=== PATIENT | male | born 1945 | race Caucasian/White ===

== ENCOUNTER 2020-01-25 10:10 | Observation (INO) | payer MEDICARE, OTHER, SELFPAY ==
--- NOTE | 2020-01-21 10:14 | ECG_ITS ---
Measurements Intervals [place] Rate: 44 P: TN: 0 QRS: 225 QRSD: 134 T: 161 QT: 432 QTc: 370 SINUS RHYTHM WITH MOBITZ TYPE 1 BLOCK 2:1 AV BLOCK NOTED MARKED RIGHT AXIS DEVIATION [QRS AXIS > 100] RIGHT BUNDLE BRANCH BLOCK [120+ ms QRS DURATION, UPRIGHT V1, 40+ ms S IN I/aVL/V4/V5/V6] Compared to ECG 05/02/2019 10:32:25 Right-axis deviation now present Sinus bradycardia no longer present Left-axis deviation no longer present Electronically Signed On 01-22-2020 16:42:52 CDT by Angy Giron M.D. [email or web address]
[2020-01-21 10:26] VITALS: BMI 32.2
--- NOTE | 2020-01-21 10:42 | ANES.PREANE2 ---
Pre-Anesthetic Assessment Pre-Anesthetic Assessment: Height/Weight: Height 1.73 m Weight 96.162 kg Preop Diagnosis: Mobitz type II AV block Proposed Procedure: Operation Date: 01/25/20 07:00 Proposed Procedures p Pacemaker Insertion(Not Applicable) - Dave Cobian MD Familial anesthetic complications: None Social: Social History: No alcohol and No tobacco Exam: Pre-Anes Outpt Exam: alert, oriented x 3, clear to auscultation bilaterally and regular rate & rhythm Airway: Cervical ROM: WNL MP: 4 Additional comments: missing Pulmonary: Pulmonary: COPD CV/HEM: CV/HEM: Arrythmia and HTN : : None reported Hepatic: Hepatic: None reported GI: GI: GERD Metabolic: Metabolic: None reported Comments: Pre-DM Musc/skel: Musc/skel: None reported Neuropsych: Neuropsych: None reported Anesthetic Plan: ASA status: 3 Anesthesia: MAC Risk of > 500 ml blood loss (7ml/kg in children): No PFSH Anesthesia PFSH: Social History Smoking and tobacco status: former smoker Alcohol intake: former Data Anesthesia Cardiac Studies: No Data to Display
[2020-01-21 10:49] LABS: Basophils # 0.1 10^3/uL (0.0-0.1); Basophils % 0.7 %; Eosinophils # 0.4 10^3/uL (0.0-0.8); Eosinophils % 5.7 %; Hematocrit 43.4 % (42.0-52.0); Hemoglobin 14.8 g/dL (11.7-16.6); Lymphocytes # 2.2 10^3/uL (0.8-4.8); Lymphocytes % 32.8 %; Mean Corpuscular HGB Conc 34.1 g/dL (30.0-36.0); Mean Corpuscular Hemoglobin 30.6 pg (28.0-34.0); Mean Corpuscular Volume 89.9 fL (80-94); Mean Platelet Volume 10.5 fL (7.4-10.4); Monocytes # 0.5 10^3/uL (0.2-0.9); Monocytes % 7.8 %; Neutrophils # 3.6 10^3/uL (1.8-7.7); Neutrophils % 52.7 %; Nucleated Red Blood Cells % 0 %; Platelet Count 211 10^3/cmm (130-400); Red Blood Count 4.83 10^6/uL (4.1-5.3); Red Cell Distribution Width 12.6 % (12.1-15.1); White Blood Count 6.8 10^3/uL (4.0-10.0)
[2020-01-21 10:58] LABS: INR 0.95 (0.8-1.2)
[2020-01-21 11:03] LABS: Add Urine Microscopic? NO
[2020-01-21 11:07] LABS: Anion Gap 15.2 (5-19); Blood Urea Nitrogen 25 mg/dL (8-23); Calcium 9.6 mg/dL (8.5-10.5); Carbon Dioxide 25 mmol/L (22-29); Chloride 104 mmol/L (98-107); Glucose 174 mg/dL (65-115); Osmolality Calculated 291 mOsm/kg (285-295); Potassium 4.2 mmol/L (3.5-5.1); Sodium 140 mmol/L (136-145)
[2020-01-22 05:02] LABS: Specific Gravity, Urine 1.015 (1.005-1.030); Urine Appearance Clear (CLEAR); Urine Color Yellow (Yellow); pH Urine 5 (5-7)
[2020-01-22 05:03] LABS: Bilirubin Urine Neg (NEGATIVE); Blood Urine Neg (Negative); Glucose Urine UA Norm (Normal); Ketones Urine Negative (Negative); Leukocyte Esterase Urine Negative (Negative); Nitrate Urine Negative (Negative); Protein Urine Neg (Negative); Urobilinogen Urine Norm (Negative)
[2020-01-25] VITALS (16 sets, daily range): BP systolic 76–166; BP diastolic 46–101; PULSE 45–93; RESP 14–21; TEMP 36.3–37.1; O2SAT 94–98
--- NOTE | 2020-01-25 | SCC_ITS ---
Procedure Done: Dual-chamber pacemaker implantation 470.2 seconds of fluoroscopic guidance, for a cumulative dose of 125.54 mGy, was provided to Dr. Cobian by the radiology department. C-arm images of the chest were saved for the patient's permanent record. [facility]
--- NOTE | 2020-01-25 05:59 | XR_ITS ---
WS: [id number] XR chest 1V portable [id number] REASON FOR EXAM: Preop pacemaker implantation FINDINGS: Cardiomegaly with arteriosclerotic changes. The trachea is deviated to the right of midline The superior thyroid appears to be slightly prominent a thyroid substernal cannot be excluded. XR/XR chest 1V portable [id number] IMPRESSION: Cardiomegaly with arteriosclerotic changes Suspect substernal thyroid.
--- NOTE | 2020-01-25 06:17 | P.ANESUD_ITS ---
Pre-Anesthetic Update Pre-Anesthetic Assessment: Date of Surgery/Procedure: 01/25/20 Preop Tuyet gnosis: Mobitz type II AV block Proposed Procedure: Operation Date: 01/25/20 07:00 Proposed Procedures p Pacemaker Insertion(Not Applicable) - Dave Cobian MD Any changes to Pre-Anesthetic Assessment?: No Last Intake: Intake Last Liquid Date 01/24/20 Last Liquid Time 20:00 Last Solid Date 01/24/20 Last Solid Time 20:00 Vitals: Temperature 98.7 F 01/25/20 06:02 Temperature Source Temporal Artery S can 01/25/20 06:02 Pulse Rate 45 L 01/25/20 06:02 Respiratory Rate 18 01/25/20 06:02 Blood Pressure 161/77 01/25/20 06:02 Blood Pressure Jamilah n 105 01/25/20 06:02 Pulse Oximetry 97 01/25/20 06:02 Oxygen Delivery Me thod 01/25/20 06:02 Exam: Pre-Anes Outpt Exam: alert, oriented x 3, clear to auscultation bilaterally and regular rate & rhythm Cardiac Studies: No Data to Display
--- NOTE | 2020-01-25 06:28 | W.PM.OPSUD ---
Surgery/Procedure H&P Update DATE OF PROCEDURE: January 25, 2020 DATE H&P PERFORMED: 02/20/20 H&P UPDATE INFORMATION: I have reviewed H&P completed within last 30 days, I have examined patient prior to procedure and Changes to prior documentation as noted here CHANGES TO PREVIOUS DOCUMENTATION: I have reviewed the single view portable chest x-ray for this morning. Moderate cardiomegaly though otherwise clear lung haile without effusions or infiltrates. PREOP DIAGNOSIS: Mobitz type II AV block PRIMARY INDICATION FOR PROCEDURE: Mobitz type II AV heart block with symptomatic and refractory bradycardia PLANNED PROCEDURE: Operation Date: 01/25/20 07:00 Proposed Procedures p Pacemaker Insertion(Not Applicable) - Dave Cobian MD
[2020-01-25] MEDS: sodium chloride 0.9% 1,000 ML 30 ML IV (06:33)
--- NOTE | 2020-01-25 06:48 | SC_ITS ---
NOTE: Report was unsigned for reason: Order was edited. Original Signature date and time was: 01/25/20625 WS: [id number] C-arm FL for CVA [id number] REASON FOR EXAM: pacemaker insertion FINDINGS: Imaging was performed for C-arm insertion the final exam electrodes appear to be in good position. [facility] SC/C-arm FL for CVA [id number] IMPRESSION: Imaging for performance insertion of a pacemaker satisfactory position wiring.
[2020-01-25] MEDS: ceFAZolin 1,000 mg SDV 1000 MG IRRIGATION (07:19)
[2020-01-25] MEDS: lidocaine 1% INJ 20 mL SUBCUT ×2 (07:19→09:05)
--- NOTE | 2020-01-25 07:34 | SUR.OPER ---
0734 - Pt's Sabi updated on surgery progress and pt stats via her cell phone.
--- NOTE | 2020-01-25 09:14 | SUR.OPER ---
1568 - Pt's updated on surgery progress and pt status via he cell phone
--- NOTE | 2020-01-25 09:45 | PM.OP ---
Operative Report Date of procedure: January 25, 2020 Pre-op Diagnosis: Mobitz type II AV block Post-op diagnosis: same Procedure Done: Dual-chamber pacemaker implantation Implants: Pacemaker generator and leads Pathology: none sent Surgeon: Dave Cobian Anesthesia: MAC and Local (12 cc 1% lidocaine infiltrated locally) Estimated blood loss (mL): 30 Complications: None: Post procedure chest x-ray pending Findings: Due to difficulty engaging the small left subclavian vein as imaged by handheld ultrasound, we elected to place the device in the right subclavicular region. Condition: stable Disposition: PACU Brief History: Mr. Fulton is a 75-year-old gentleman with progressive, highly symptomatic bradycardia with documented Mobitz type II AV block. Cardiology is recommended a dual chamber pacemaker implantation. Details of risk the procedure were carefully and frankly discussed. Appropriate consents were reviewed and signed. Procedure: Procedure: Mr. Fulton was taken to the OR suite and placed in the supine position over a shoulder roll. He received conscious sedation with continuous anesthesia monitoring by. His entire chest was sterilely prepped and draped. 1% lidocaine was initially infiltrated in the left subclavicular region. While in Trendelenburg position, multiple attempts were made to engage the left subclavian vein without success. Hand-held imaging ultrasound revealed that this vein was quite small, rather collapsed, and deep. We separately proceeded over to the right side were again once lidocaine was infiltrated and then utilizing modified Seldinger technique 2 guidewires were placed in the right subclavian vein. This was confirmed in position by fluoroscopy. Next, after infiltration with lidocaine, a subcutaneous pocket was created beginning from the exit point of the guidewire and extending laterally and inferiorly. Cautery was utilized to create the pocket just above the pectoralis musculature. Hemostasis was confirmed. An antibiotic-soaked sponge was placed in the wound. A dilator and tear-away sheath was placed over the first guidewire and advanced under fluoroscopy. Guidewire and dilator were removed. Next using a combination of curved and straight stylettes, the right ventricular lead was placed in position by fluoroscopy. The distal screw was extended. Interrogation was then performed confirming appropriate parameters. The tear-away sheath was then removed and the ventricular lead was sewn to the floor of the subcutaneous pocket. In a similar fashion dilator and tear-away sheath was placed over the 2nd guide wire and advanced under fluoroscopy. Guidewire and dilator were removed. Straight and curved stylettes were used to position the right atrial lead with fluoroscopy. Distal screw was extended. Interrogation was then performed. Tear-away sheath was then removed. Atrial lead was secured to the floor of the subcutaneous pocket. Pocket was irrigated with antibiotic solution and hemostasis again confirmed. Pacing generator was brought into the field, and after confirmation of hemostasis in the subcutaneous pocket, the leads were connected to the generator with appropriate capture. The entire system was interrogated by fluoroscopy. Leads and generator were secured in the pocket. Sponge and needle count was correct. The wound was then closed in 2 layers of 3-0 Vicryl suture. Skin was reapproximated in a subcuticular manner with 4-0 Monocryl suture. A pressure dressing was applied. The right arm was placed in a sling. Mr. Fulton had equal breath sounds bilaterally. He was then transferred to the PACU, where chest x-ray was performed and reviewed. No pneumothorax was noted and mediastinum was unchanged from preop chest x-ray. I did automobile travel club counselor with his , Sabi, by phone at the completion of the procedure. Following are the specifics of this system: Right ventricular lead is 52 cm and model 5076. Serial number [id number] Right atrial lead is 45 cm and is model 5076. Serial number [id number]. Ventricular lead had sensing of 6.3 mV with an impedance of 760 ohms. Threshold was 0.75 V Atrial lead had sensing of 1.9 mV with an impedance of 551 ohms. Threshold was 0.75 V. Generator: [employer] model # W1DR01 Serial #[id number]
--- NOTE | 2020-01-25 09:48 | XR_ITS ---
WS: [id number] XR chest 1V portable [id number] REASON FOR EXAM: POST OP FINDINGS: Since earlier exam exposed 01/25/2020 a pacemaker is now seen extending from the right side e lectrodes appear to be in good position. The heart is similar in size with arteriosclerotic changes. There is no pneumothorax seen. XR/XR chest 1V portable [id number] IMPRESSION: Pacemaker seen extends from the right side with electrodes in good position.
[2020-01-25] MEDS: lactated ringers 1,000 ML 75 ML IV ×2 (10:42→21:58)
[2020-01-25 11:28] LABS: Glucose Point of Care 212 mg/dL (70-110)
[2020-01-25] MEDS: ceFAZolin 1,000 MG in sodium chloride 0.9% (plus) 50 ML 100 MG IV ×2 (13:19→21:56)
[2020-01-25] MEDS: lisinopril 5 mg Tablet PO (15:36)
[2020-01-25] MEDS: amlodipine 5 mg Tablet PO (17:37)
[2020-01-25] MEDS: famotidine 20 mg Tablet PO (21:56)
[2020-01-26] VITALS: BP 182/104; PULSE 95; RESP 18; TEMP 37.1; O2SAT 94
[2020-01-26] MEDS: amlodipine 10 mg Tablet PO (01:41)
[2020-01-26 04:00] VITALS: BP 151/92; PULSE 87; RESP 16; TEMP 37.1; O2SAT 94
--- NOTE | 2020-01-26 06:06 | PM.PN ---
Subjective Subjective: Interval history: Postop day #1 status post dual-chamber pacemaker implantation. A bit hypertensive to the evening late. Amlodipine given. Blood pressure improved this morning. Telemetry reveals atrial sensing and ventricular pacing at 90 bpm. Full interrogation is pending this morning. Outer pressure dressing removed. No complaints. Eager for discharge. Vitals/I&O/Wt Last Vital Signs Temp 98.8 F 01/26/20 04:00 Pulse 87 01/26/20 04:00 Resp 16 01/26/20 04:00 BP 151/92 01/26/20 04:00 Pulse Ox 94 01/26/20 04:00 01/25/20 01/25/20 01/26/20 14:59 22:59 06:59 Intake Total 340 / 340 1085 / 1425 Output Total 325 / 325 500 / 825 350 / 1175 Balance 585 / 600 -350 / 250 Physical Exam Chest: COMMONS NORMALS: inspection of chest normal (No substantial swelling at pacemaker site.) Data : 01/21/20 10:37 01/21/20 10:37 A&P Assessment and plan (1) Mobitz II: POD #1 status post dual-chamber pacemaker implantation. Plan: Discharged home with follow-up in heart care services in 1 week. Status: Acute Attestations Medical Necessity Statement*: Dual-chamber pacemaker implantation for highly symptomatic bradycardia secondary to Mobitz type II AV heart block Time Spent in Patient Care: less than 15 minutes Coding Level of Care Code Acute Air And Water Filler for Anthony Alston Diagnoses Mobitz II I44.1
[2020-01-26] MEDS: ceFAZolin 1,000 MG in sodium chloride 0.9% (plus) 50 ML 100 MG IV (06:13)
--- NOTE | 2020-01-26 06:15 | P.DS_ITS ---
Discharge Providers Date of Admission: 01/25/20 10:09 Date of Discharge: January 26, 2020 Attending Provider at Admission: Dave Cobian MD Attending Provider at Discharge: Dave Cobian MD Primary Care Provider: RYAN Hollins Diagnoses at Discharge Discharge Diagnosis (1) Mobitz II: Status: Acute Hospital Course Discharge Summary: Mr. Fulton is a 75-year-old gentleman with highly symptomatic and refractory bradycardia with Mobitz type II AV block. He was referred to our service and dual-chamber pacemaker implantation was scheduled at the recommendation of cardiology. Pacemaker and leads were implanted yesterday. Due to difficulty with access from the left subclavian approach, his pacemaker system was placed in a right subclavicular position. He has had a uneventful night. He has been mostly atrially sensed and ventricularly paced. Outer bandage was removed today. No substantial swelling. Vital signs are stable. He did have a bit of hypertension and amlodipine was initiated and he will be discharged on 10 mg daily in addition to his 5 mg of lisinopril. Pacemaker interrogation will again be repeated this morning prior to discharge to confirm appropriate function. At the time of discharge she is in stable condition. Physical Exam Chest: COMMONS NORMALS: inspection of chest normal (Pacemaker site clean and dry without swelling, redness, or tenderness.) Discharge Data Data Completed and Pending: Completed Studies During Hospitalization Category Date Time Status XR chest 1V [place] [id number] Routine Exams 01/25/20 05:59 Completed XR chest 1V [place] [id number] Routine Exams 01/25/20 09:48 Completed Labs from last 24 hours 01/25/20 11:22 POC Glucose 212 Vitals: Last Vital Signs Temp 98.8 F 01/26/20 04:00 Pulse 87 01/26/20 04:00 Resp 16 01/26/20 04:00 BP 151/92 01/26/20 04:00 Pulse Ox 94 01/26/20 04:00 Discharge Plan Discharge Patient Disposition: Home, Self-Care Condition: Stable Prescriptions: New hydrocodone-acetaminophen 5-325 mg Tablet 1 tab PO Q6H PRN (Reason: Moderate Pain) Qty: 10 RF: 0 amlodipine 5 mg Tablet 10 mg PO DAILY Qty: 30 RF: 3 Continued cetirizine 10 mg capsule 10 mg PO DAILY RF: 0 omeprazole 40 mg capsule,delayed release(DR/EC) 40 mg PO DAILY RF: 0 lisinopril 5 mg tablet 5 mg PO DAILY RF: 0 Discharge Orders: Discharge Order (Routine); Ordered 01/26/20 Ordered By: Dave Cobian Referrals: [facility] [Provider Group] - 02/05/20 (Pacemaker clinic) Discharge Diet: Usual diet Discharge Activity: Limit activity as instructed Activity Restrictions/Additional Instructions: May remove bandage tomorrow May begin daily showers on , January 27 No swimming or tub baths x2 weeks Do not raise right arm above eye level for 1 week No heavy lifting or pulling with right arm x2 weeks Report any redness, swelling, fever, dizziness, or drainage from incision. Discharge Attestations Time Spent in Discharge Care*: less than 30 min Specific Discharge Activities: Specific discharge activities: educating patient, discussing with behavioral health case manager/social workers/dc planners, documenting/other paperwork and evaluating patient/reviewing data Status at Discharge: Cognitive status at discharge: cognitively intact , Behavioral status at discharge: cooperative , Functional status at discharge: independent ambulation Quality Metrics Clinical Quality Measures During this hospital stay, did patient experience: None Coding Level of Care Code Acute Last Greaser for Chg Fwd Diagnoses Mobitz II I44.1
[2020-01-26 07:45] VITALS: BP 151/92; PULSE 87; RESP 16; TEMP 37.1; O2SAT 94
--- NOTE | 2020-01-26 07:46 | PC.NURSE ---
Pacemaker interrogated and sent to heart care at this time. Patient is ready to go home. Will wait for review of the interrogation before discharging. Patient verbalizes understanding.
[2020-01-26 07:51] VITALS: BP 148/87; PULSE 95; RESP 18; TEMP 36.8; O2SAT 94
[2020-01-26] MEDS: amlodipine 5 mg Tablet PO (08:15)
[2020-01-26] MEDS: lisinopril 5 mg Tablet PO (08:15)
--- NOTE | 2020-01-26 09:35 | PC.NURSE ---
Patient discharged at this time. Reviewed patient discharge instructions with patient including medication changes and follow up appointments. Patient also given reminder about not lifting his arm above eye level or pulling or lifting with his right arm. Patient verbalized understanding. IV removed and is intact. Patient tolerated well. Patient is A&Ox3. Respirations even and non-labored on room air.
[2020-01-26 09:54] VITALS: BP 148/87; PULSE 95; RESP 18; TEMP 36.8; O2SAT 94
== END 2020-01-26 09:40 | disposition home or self-care (01) ==
LOC: MEDSURG 01-26 06:15
PROVIDERS: Admitting Provider Thoracic Surgery (Cardiothoracic Vascular Surgery); PCP Nurse Practitioner Family; Visit Provider Thoracic Surgery (Cardiothoracic Vascular Surgery)
PROC: (CPT 33208; principal; 2020-01-25 07:00)
DX: I44.1 Atrioventricular block, second degree (principal); J44.9 Chronic obstructive pulmonary disease, unspecified; I10 Essential (primary) hypertension; K21.9 Gastro-esophageal reflux disease without esophagitis; R73.03 Prediabetes; Z87.891 Personal history of nicotine dependence; E66.9 Obesity, unspecified; Z68.32 Body mass index [BMI] 32.0-32.9, adult; Z82.49 Family history of ischemic heart disease and other diseases of the circulatory system
CPT/HCPCS: 33208; 12345; 36415; 36416; 71045; 76000; 77001; 80048; 81003; 82962; 85025; 85610; 93005; 96361; 96365; C1779; C1786; G0378; J0360; J0690; J2001; J2704; J7030

== ENCOUNTER → 2020-03-22 13:35 | Outpatient (BNVA) | payer MEDICARE, OTHER, SELFPAY | PROVIDERS: PCP Nurse Practitioner Family; Visit Provider Urology | DX: R97.20 Elevated prostate specific antigen [PSA] (principal) | CPT/HCPCS: 81001; 84153 ==

== ENCOUNTER → 2020-06-16 12:00 | Outpatient (BNVA) | payer MEDICARE, OTHER, SELFPAY | PROVIDERS: PCP Nurse Practitioner Family; Visit Provider Nurse Practitioner Family | DX: Z20.828 Contact with and (suspected) exposure to other viral communicable diseases (principal) | CPT/HCPCS: 87635 ==

== ENCOUNTER 2020-06-28 12:20 | Emergency (ER) | payer MEDICARE, OTHER, SELFPAY ==
[2020-06-28 12:53] VITALS: BP 118/82; PULSE 95; RESP 18; TEMP 36.8; O2SAT 89; BMI 32.5
--- NOTE | 2020-06-28 12:55 | XR_ITS ---
WS: [id number] XR chest 1V portable [id number] REASON FOR EXAM: dyspnea/cough FINDINGS: Cardiac pacemaker overlying the right anterolateral chest wall leads to the right atrium and right ve ntricular apex. The heart is not enlarged. No active pulmonary parenchymal or pleural disease is noted. Calcified granulomatous changes are note d in both hemithoraces. The chest is unchanged compared to previous examination of 05/02/2019 except for interval placement o f the cardiac pacemaker. XR/XR chest 1V portable [id number] IMPRESSION: No acute chest abnormality.
[2020-06-28 13:28] LABS: Basophils % 0.2 %; Eosinophils # 0.1 10^3/uL (0.0-0.8); Eosinophils % 0.7 %; Hematocrit 43.3 % (42.0-52.0); Hemoglobin 15.1 g/dL (11.7-16.6); Lymphocytes # 1.5 10^3/uL (0.8-4.8); Lymphocytes % 16.6 %; Mean Corpuscular HGB Conc 34.9 g/dL (30.0-36.0); Mean Corpuscular Hemoglobin 30.4 pg (28.0-34.0); Mean Corpuscular Volume 87.1 fL (80-94); Monocytes # 0.6 10^3/uL (0.2-0.9); Monocytes % 6.4 %; Neutrophils # 6.85 10^3/uL (1.8-7.7); Neutrophils % 75.5 %; Nucleated Red Blood Cells % 0 %; Platelet Count 217 10^3/cmm (130-400); Red Blood Count 4.97 10^6/uL (4.1-5.3); Red Cell Distribution Width 13.2 % (12.1-15.1); White Blood Count 9.1 10^3/uL (4.0-10.0)
[2020-06-28 13:45] LABS: Fibrinogen 730 mg/dL (174-498)
[2020-06-28 13:47] LABS: Alanine Aminotransferase 21 U/L (0-41); Albumin Level 3.5 g/dL (3.5-5.2); Alkaline Phosphatase 71 IU/L (40-130); Anion Gap 15.4 (5-19); Aspartate Amino Transferase 32 U/L (0-40); Blood Urea Nitrogen 21 mg/dL (8-23); C Reactive Protein 45.3 mg/L (0.0-4.9); Calcium 8.7 mg/dL (8.5-10.5); Carbon Dioxide 21 mmol/L (22-29); Chloride 98 mmol/L (98-107); D Dimer 1.45 ug/mIFEU (0-0.59); Globulin 3.7 g/dL (1.3-4.6); Glucose 202 mg/dL (65-115); Lactate Dehydrogenase 436 U/L (135-225); Osmolality Calculated 281 mOsm/kg (285-295); Potassium 3.4 mmol/L (3.5-5.1); Sodium 131 mmol/L (136-145); Total Bilirubin 0.6 mg/dL (0.15-1.2); Total Protein 7.2 g/dL (6.6-8.7)
[2020-06-28 13:48] LABS: Lactic Sepsis W/Reflex 2.2 mmol/L (0.5-2.2)
[2020-06-28 14:00] LABS: Ferritin 3463 ng/mL (30-400)
[2020-06-28 14:01] LABS: ABG PCO2 33.4 mmHg (35-45); ABG PH Result 7.45 (7.35-7.45); PO2 ABG 57.5 mmHg (80.0-100.0)
[2020-06-28 14:02] LABS: Alveolar-Arterial Oxygen Gradi 98.2 mmHg (5-10); Arterial Blood Gas Hematocrit 45.1 % (42-52); Base Excess ABG -0.1 mmol/L (-2.0-2.0); Blood Gas Allen Test POS; Blood Gas Operator Identificat AMH; Blood Gas Sample Site LR; Blood Gas Sample Type ARTERIAL; HCO3 ABG 23.3 mmol/L (22-26); Oxygen Device NC; Oxygen Saturation ABG 91.9; Potassium Level - ABG 3.3 mmol/L (3.5-5.0)
[2020-06-28 14:03] LABS: Carboxyhemoglobin 1.3 %THgb (0.4-20.1); HGB O2 Sat 89.9 % (95-100); Ionized Calcium Level - ABG 1.1 mmol/L (1.1-1.4); Methemoglobin 0.8 % (0.4-1.5); Total Hemoglobin 14.7 g/dL (14-18)
[2020-06-28 14:05] VITALS: BP 106/73; PULSE 86; RESP 20; O2SAT 92
[2020-06-28 15:09] LABS: Reflex Lactate Order REFLEX LACTIC ORDERD
[2020-06-28] MEDS: dexamethasone 4 mg/mL INJ 6 MG IVP (15:55)
--- NOTE | 2020-06-28 16:21 | W.ED.SOB ---
HPI - SOB/Dyspnea General: Chief Complaint: Shortness of Breath/Dyspnea Stated Complaint: COVID+/SOB Time Seen by Provider: 06/28/20 13:07 History of Present Illness: HPI Narrative: This patient is a 75-year-old gentleman who presents to the ER today with shortness of breath. He has a history of a positive COVID diagnosis about 14 days ago. He is continued to have symptoms throughout the course and was at his doctor's office for follow-up appointment today when his oxygen saturation was around 90 and he was sent to the ER. On presentation here his saturations on room air were between 85 and 89%. On oxygen he is running about 94 to 95% on 2 L. He feels much better with the oxygen on. He denies vomiting. He has no chest pain. He denies pain or swelling in his legs. He does have a history of diabetes but says it is been well controlled. He also has hypertension and has a pacemaker for heart block. He has some COPD it is history but says it is well controlled. MD elicited complaint: shortness of breath and cough Pertinent past history: COPD and diabetes Context: recent illness Timing: constant Severity: moderate Exacerbating factors: exertion Relieving factors: oxygen Associated symptoms: Reports fever(s); Deny abdominal pain, chest pain, nausea or vomiting Review of Systems General: Reports: 10 or more systems reviewed and unremarkable except in HPI and below Const: Reports: fever(s), chills, fatigue and malaise Eyes: Denies: change in vision ENMT: Denies: odynophagia Card: Denies: chest pain or swelling of feet/ankles Resp: Reports: dyspnea and non-productive cough; Denies: productive cough GI: Denies: abdominal pain, nausea or vomiting : Denies: flank pain Musc: Denies: neck pain or back pain Skin/Breast: Denies: rash Neuro: Denies: headache(s), numbness in extremities or weakness in extremities Curtis/Lymph: Denies: easy bruising or easy bleeding PFSH ED PFSH: Medical History Penny esophagus Chronic seasonal allergic rhinitis Diabetes Elevated PSA Essential hypertension GERD (gastroesophageal reflux disease) Heart block Lung granuloma Mobitz II Obesity Pacemaker Thyroid nodule Vitamin D deficiency Surgical History Status post appendectomy Status post operation on nasal sinus Family History Mother , at age 65 CAD (coronary artery disease) Father , at age 90 No problems noted. Social History Smoking and tobacco status: former smoker Alcohol intake: former Marital status: Current occupational status: retired History of recent travel: No Physical Exam Const: COMMON NORMALS: no acute distress, patient oriented x3, no limitations and alert GENERAL APPEARANCE: cooperative and comfortable HENMT: HEAD & SCALP: normal to inspection FACE & SINUS: normal facial exam Eye: GENERAL EYE: appearance normal, both eyes and all related structures Neck/C-Spine: COMMON NORMALS: supple, no meningeal signs and no JVD Chest: COMMONS NORMALS: normal inspection of the chest Resp: COMMON NORMALS: normal respiratory effort, No use of accessory muscles and clear to auscultation bilaterally AUSCULTATION: clear to auscultation bilaterally Cardio: COMMON NORMALS: no JVD, regular rate, regular rhythm and No murmurs present (Cardio) RATE: regular rate RHYTHM: regular rhythm GI: COMMON NORMALS: Normal to inspection, nondistended, normoactive bowel sounds present, Soft to palpation and non-tender INSPECTION: Yes normal to inspection AUSCULTATION: Yes normoactive bowel sounds PALPATION: Yes Soft to palpation Back/Pelvis: COMMON NORMALS: thoracic and lumbar spine normal to inspection Extremity: COMMON NORMALS: normal to inspection Neuro: COMMON NORMALS: patient oriented x3, moves all extremities, no focal motor deficits and no sensory deficits noted SENSORIUM/ORIENTATION: Yes alert MENINGEAL SIGNS: Yes no meningeal signs Psych: COMMON NORMALS: mental status grossly normal, cooperative and normal affect Skin: COMMON NORMALS: no rashes or lesions noted and turgor normal GENERAL SKIN EXAM: no rashes or lesions noted and turgor normal Course ED course: This patient is a 75-year-old male with history of diabetes and COPD. Overall he is actually doing quite well but does have hypoxia. His room air sat was in the upper 80s here, and with 2 L of oxygen he was in the lower 90s. I discussed in depth with him the options of coming into the hospital for remdesivir versus going home on home oxygen and dexamethasone alone. He definitely wants to go home. His is also being seen here with JP and is also going home. We will make sure that they have a pulse ox at home. They understand to return if worse in any way and that worsening is a definite possibility. I expect he will do well however. Vital Signs: Vital signs: Vital Signs Temperature 98.3 F 06/28/20 12:53 Pulse Rate 112 H 06/28/20 17:59 Respiratory Rate 16 06/28/20 16:38 Blood Pressure 132/79 06/28/20 17:59 Pulse Oximetry 90 06/28/20 17:59 MDM - SOB/Dyspnea Lab Data: Labs: Lab Results 06/28/20 06/28/20 06/28/20 Range/Units 13:17 13:17 13:17 WBC 9.1 (4.0-10.0) 10^3/ uL RBC 4.97 (4.1-5.3) 10^6/u L Hgb 15.1 (11.7-16.6) g/dL Hct 43.3 (42.0-52.0) % MCV 87.1 (80-94) fL MCH 30.4 (28.0-34.0) pg MCHC 34.9 (30.0-36.0) g/dL RDW 13.2 (12.1-15.1) % Plt Count 217 (130-400) 10^3/c mm MPV 10.0 (7.4-10.4) fL Neut % (Auto) 75.5 % Lymph % (Auto) 16.6 % [place] % (Auto) 6.4 % Eos % (Auto) 0.7 % Baso % (Auto) 0.2 % Neut # (Auto) 6.85 (1.8-7.7) 10^3/u L Lymph # (Auto) 1.5 (0.8-4.8) 10^3/u L [place] # (Auto) 0.6 (0.2-0.9) 10^3/u L Eos # (Auto) 0.1 (0.0-0.8) 10^3/u L Baso # (Auto) 0.0 (0.0-0.1) 10^3/u L Nucleated RBC % (a uto) 0 % Nucleated RBCs # 0.0 /100WBC Fibrinogen 730 H (174-498) mg/dL D-Dimer 1.45 H (0-0.59) ug/mIFE U Specimen Type Sample Site ABG pH (7.35-7.45) ABG pCO2 (35-45) mmHg ABG pO2 (80.0-100.0) mmH g ABG HCO3 (22-26) mmol/L ABG O2 Saturation ABG Base Excess (-2.0-2.0) mmol/ L Jovan Test A-a O2 Gradient (5-10) mmHg Hematocrit (42-52) % Hgb O2 Saturation (95-100) % Carboxyhemoglobin (0.4-20.1) %THgb Methemoglobin (0.4-1.5) % Total Hemoglobin (14-18) g/dL Ionized Calcium (1.1-1.4) mmol/L O2 Delivery Device FiO2 % Research Professor Of Biostatistics ID Sodium 131 L (136-145) mmol/L Potassium 3.4 L (3.5-5.1) mmol/L Chloride 98 (98-107) mmol/L Carbon Dioxide 21 L (22-29) mmol/L Anion Gap 15.4 (5-19) BUN 21 (8-23) mg/dL Creatinine 1.0 (0.7-1.2) mg/dL GFR Calculation Not Reportable Glucose 202 H (65-115) mg/dL Calculated Osmolal ity 281 L (285-295) mOsm/k g Lactic Acid (0.5-2.2) mmol/L Calcium 8.7 (8.5-10.5) mg/dL Ferritin 3463 H (30-400) ng/mL Total Bilirubin 0.6 (0.15-1.2) mg/dL AST 32 (0-40) U/L ALT 21 (0-41) U/L Alkaline Phosphata se 71 (40-130) IU/L Lactate Dehydrogen ase 436 H (135-225) U/L C-Reactive Protein 45.3 H (0.0-4.9) mg/L Total Protein 7.2 (6.6-8.7) g/dL Albumin 3.5 (3.5-5.2) g/dL Globulin 3.7 (1.3-4.6) g/dL 06/28/20 06/28/20 Range/Units 13:17 13:30 WBC (4.0-10.0) 10^3/ uL RBC (4.1-5.3) 10^6/u L Hgb (11.7-16.6) g/dL Hct (42.0-52.0) % MCV (80-94) fL MCH (28.0-34.0) pg MCHC (30.0-36.0) g/dL RDW (12.1-15.1) % Plt Count (130-400) 10^3/c mm MPV (7.4-10.4) fL Neut % (Auto) % Lymph % (Auto) % [place] % (Auto) % Eos % (Auto) % Baso % (Auto) % Neut # (Auto) (1.8-7.7) 10^3/u L Lymph # (Auto) (0.8-4.8) 10^3/u L [place] # (Auto) (0.2-0.9) 10^3/u L Eos # (Auto) (0.0-0.8) 10^3/u L Baso # (Auto) (0.0-0.1) 10^3/u L Nucleated RBC % (a uto) % Nucleated RBCs # /100WBC Fibrinogen (174-498) mg/dL D-Dimer (0-0.59) ug/mIFE U Specimen Type Arterial Sample Site Lr ABG pH 7.45 (7.35-7.45) ABG pCO2 33.4 L (35-45) mmHg ABG pO2 57.5 L (80.0-100.0) mmH g ABG HCO3 23.3 (22-26) mmol/L ABG O2 Saturation 91.9 ABG Base Excess -0.1 (-2.0-2.0) mmol/ L Jovan Test Pos A-a O2 Gradient 98.2 H (5-10) mmHg Hematocrit 45.1 (42-52) % Hgb O2 Saturation 89.9 L (95-100) % Carboxyhemoglobin 1.3 (0.4-20.1) %THgb Methemoglobin 0.8 (0.4-1.5) % Total Hemoglobin 14.7 (14-18) g/dL Ionized Calcium 1.1 (1.1-1.4) mmol/L O2 Delivery Device Nc FiO2 39.0 % Research Professor Of Biostatistics ID Amh Sodium 135.0 (136-145) mmol/L Potassium 3.3 L (3.5-5.1) mmol/L Chloride (98-107) mmol/L Carbon Dioxide (22-29) mmol/L Anion Gap (5-19) BUN (8-23) mg/dL Creatinine (0.7-1.2) mg/dL GFR Calculation Glucose 204.0 H (65-115) mg/dL Calculated Osmolal ity (285-295) mOsm/k g Lactic Acid 2.2 (0.5-2.2) mmol/L Calcium (8.5-10.5) mg/dL Ferritin (30-400) ng/mL Total Bilirubin (0.15-1.2) mg/dL AST (0-40) U/L ALT (0-41) U/L Alkaline Phosphata se (40-130) IU/L Lactate Dehydrogen ase (135-225) U/L C-Reactive Protein (0.0-4.9) mg/L Total Protein (6.6-8.7) g/dL Albumin (3.5-5.2) g/dL Globulin (1.3-4.6) g/dL Discharge Plan Discharge Patient Disposition: Home Clinical Impression: COVID-19, Hypoxia, Other viral pneumonia, Diabetes Condition: Stable Prescriptions: New dexamethasone 6 mg tablet 6 mg PO DAILY Qty: 7 RF: 0 No Action triamcinolone acetonide 40 mg/mL suspension 40 mg IM ONCE Qty: 1 RF: 0 loratadine [Claritin] 10 mg tablet 10 mg PO Q24H PRN (Reason: allergy symptoms) 30 Days Qty: 30 RF: 0 levofloxacin 500 mg tablet 500 mg PO DAILY 5 Days Qty: 5 RF: 0 lidocaine HCl [Xylocaine] 10 mg/mL (1 %) solution 2 ml IM ONCE Qty: 1 RF: 0 ceftriaxone 1 gram recon soln 1 gm IM ONCE Qty: 1 RF: 0 dexamethasone sodium phosphate 10 mg/mL solution 10 mg IM ONCE Qty: 1 RF: 0 omeprazole 40 mg capsule,delayed release(DR/EC) 40 mg PO DAILY 90 Days Qty: 90 RF: 1 (DME) blood sugar diagnostic [Accu-Chek Guide test strips] Strip See Rx Instructions .ROUTE .MEDSUPPLY Qty: 180 RF: 0 amlodipine 5 mg tablet 10 mg PO DAILY 90 Days Qty: 180 RF: 0 losartan 25 mg tablet See Rx Instructions .ROUTE .COMPLEX Qty: 90 RF: 1 hydrocodone-acetaminophen 5-325 mg Tablet 1 tab PO Q6H PRN (Reason: Moderate Pain) Qty: 10 RF: 0 Discharge Orders: Discharge Order (Routine); Ordered 06/28/20 Ordered By: Doris John Other Ambulatory Orders: DME: Oxygen (Order) Location: None Selected Ordered By: Doris John Referrals: MAYRA Rodriguez, PEGGER DOBBY LOOMS [Primary Care Provider] - Discharge Diet: Usual diet Discharge Activity: Resume usual activity Patient Instructions: Pneumonia (ED) Activity Restrictions/Additional Instructions: Use the oxygen as prescribed. Take the dexamethasone as prescribed. Continue the other medicines previously prescribed. Continue to monitor your blood sugar at home. Return to the emergency room if increasing shortness of breath, if unable to keep your oxygen saturations greater than 90% or any other new or concerning symptoms. Discharge Date/Time: 06/28/20 18:00 Coding Level of Care Code ED Finish Production Manager for Anthony Alston Exam Comprehensive
[2020-06-28 16:24] VITALS: O2SAT 88
[2020-06-28 16:38] VITALS: BP 129/87; PULSE 98; RESP 16; O2SAT 91
[2020-06-28 17:59] VITALS: BP 132/79; PULSE 112; O2SAT 90
== END 2020-06-28 18:00 | disposition home or self-care (01) ==
PROVIDERS: Family Medicine; Emergency Provider Emergency Medicine; PCP Nurse Practitioner Family
DX: U07.1 COVID-19 (principal); J12.89 Other viral pneumonia; R09.02 Hypoxemia; E11.9 Type 2 diabetes mellitus without complications; I10 Essential (primary) hypertension; Z95.0 Presence of cardiac pacemaker; Z87.891 Personal history of nicotine dependence
CPT/HCPCS: 12345; 36600; 71045; 80051; 80053; 82728; 82810; 83605; 83615; 83986; 85025; 85378; 85384; 86140; 96374; 96375; 99283; 99284; J1100

== ENCOUNTER → 2020-12-29 08:50 | Outpatient (BNVA) | payer MEDICARE, OTHER, SELFPAY | PROVIDERS: PCP Nurse Practitioner Family; Visit Provider Nurse Practitioner Family | DX: M19.011 Primary osteoarthritis, right shoulder (principal); M25.511 Pain in right shoulder | CPT/HCPCS: 73030 ==

== ENCOUNTER → 2021-01-02 11:36 | Outpatient (BNVA) | payer MEDICARE, OTHER, SELFPAY | PROVIDERS: PCP Nurse Practitioner Family; Visit Provider Nurse Practitioner Family | DX: E11.9 Type 2 diabetes mellitus without complications (principal); E55.9 Vitamin D deficiency, unspecified; I10 Essential (primary) hypertension; R97.20 Elevated prostate specific antigen [PSA] | CPT/HCPCS: 80053; 80061; 81003; 82306; 83036; 84443; 85025; G0103 ==

== ENCOUNTER 2021-01-09 06:00 | Outpatient (RCR) | payer MEDICARE, OTHER, SELFPAY | END 2021-01-20 23:59 | disposition home or self-care (01) | LOC: WPT 06:00 | PROVIDERS: PCP Nurse Practitioner Family; Referring Provider Nurse Practitioner Family; Visit Provider Nurse Practitioner Family | DX: M25.519 Pain in unspecified shoulder (principal); G89.29 Other chronic pain | CPT/HCPCS: 97110; 97161 ==

== ENCOUNTER 2021-01-21 06:00 | Outpatient (RCR) | payer MEDICARE, OTHER, SELFPAY | END 2021-02-20 23:59 | disposition home or self-care (01) | LOC: WPT 06:00 | PROVIDERS: PCP Nurse Practitioner Family; Referring Provider Nurse Practitioner Family; Visit Provider Nurse Practitioner Family | DX: M25.511 Pain in right shoulder (principal); G89.29 Other chronic pain | CPT/HCPCS: 97110 ==

== ENCOUNTER → 2022-02-07 14:49 | Outpatient (BNVA) | payer MEDICARE, OTHER, SELFPAY | PROVIDERS: PCP Nurse Practitioner Family; Visit Provider Internal Medicine Cardiovascular Disease | DX: I10 Essential (primary) hypertension (principal); Z95.0 Presence of cardiac pacemaker; E11.9 Type 2 diabetes mellitus without complications; R00.0 Tachycardia, unspecified; Z87.891 Personal history of nicotine dependence; Z79.84 Long term (current) use of oral hypoglycemic drugs | CPT/HCPCS: 99214 ==

== ENCOUNTER → 2022-04-06 10:03 | Outpatient (BNVA) | payer MEDICARE, OTHER, SELFPAY | PROVIDERS: PCP Internal Medicine Cardiovascular Disease; Visit Provider Internal Medicine Cardiovascular Disease | DX: Z45.010 Encounter for checking and testing of cardiac pacemaker pulse generator [battery] (principal) | CPT/HCPCS: 93280 ==

== ENCOUNTER → 2022-08-15 15:00 | Outpatient (BNVA) | payer MEDICARE, OTHER, SELFPAY | PROVIDERS: PCP Nurse Practitioner Family; Visit Provider Internal Medicine Cardiovascular Disease | DX: I10 Essential (primary) hypertension (principal); Z95.0 Presence of cardiac pacemaker; E11.9 Type 2 diabetes mellitus without complications; Z79.84 Long term (current) use of oral hypoglycemic drugs; Z87.891 Personal history of nicotine dependence | CPT/HCPCS: 99214 ==

== ENCOUNTER → 2022-08-24 09:28 | Outpatient (BNVA) | payer MEDICARE, OTHER, SELFPAY | PROVIDERS: PCP Nurse Practitioner Family; Visit Provider Internal Medicine Cardiovascular Disease | DX: Z45.010 Encounter for checking and testing of cardiac pacemaker pulse generator [battery] (principal) | CPT/HCPCS: 93280 ==

== ENCOUNTER 2022-10-04 11:38 | Outpatient (CLI) | payer MEDICARE, OTHER, SELFPAY ==
--- NOTE | 2022-10-04 12:00 | CT_ITS ---
WS: [id number] CT SINUSES TECHNIQUE: Noncontrast CT of the paranasal sinuses with coronal and sagittal reformatted images. CLINICAL INFORMATION: J32.9 - Chronic sinusitis, unspecified COMPARISON: CT sinus 2008 DLP: 426.[address] scans at [facility] use at least one of these dose optimization techniques: automated e xposure control; mA and/or kV adjustment per patient size (includes targeted exams where dose is matc hed to clinical indication); or iterative reconstruction. FINDINGS: Polypoid mucosal thickening in the paranasal sinuses more prominent in the maxillary sinuses. This is similar in appearance to 2008. Mild mucosal thickening in the ethmoid air cells. Sphenoid sinuses we ll aerated. Mild narrowing along the sphenoid sinus ostia. Frontal sinuses are well aerated. Flatteni ng of the RIGHT frontal sinus likely due to prior trauma. This is unchanged since 2008. Cavernous carotid calcification. Normal posterior nasopharynx. Normal parapharyngeal fat. Mild narrowing of the ostiomeatal units bilaterally which remain patent. Chronic fracture of the RIGH T lamina papyracea with intraorbital fat herniation along the RIGHT frontoethmoidal recess. This is s imilar in appearance to 2008. RIGHT LEFT nasal septal deviation measuring 3 to 4 mm. Thinning of the bony nasal septum. Chronic fra cture deformity RIGHT anterior maxillary sinus. Mucosal thickening along the frontal ethmoidal recess es bilaterally. Polypoid mucosal thickening involving the nasal turbinates.. CT/CT sinus wo con* [id number] IMPRESSION: 1. RIGHT to LEFT nasal septal deviation measuring 3 to 4 mm. Thinning of the b suleiman nasal septum 2. Chronic fracture deformity involving the RIGHT frontal sinus and RIGHT maxi llary sinus. 3. Chronic fracture involving the RIGHT lamina papyracea with a small amount o f herniated intraorbital fat along the RIGHT frontoethmoidal recess. 4. Polypoid mucosal thickening in the maxillary sinuses similar to 2008. Mild mucosal thickening in the ethmoid air cells. 5. Mild polypoid mucosal thickening involving the nasal turbinates. 6. Mastoid air cells well aerated.
== END 2022-10-04 11:39 | disposition home or self-care (01) ==
LOC: RAD 11:43
PROVIDERS: PCP Nurse Practitioner Family; Visit Provider Nurse Practitioner
DX: J32.9 Chronic sinusitis, unspecified (principal)
CPT/HCPCS: 70486

== ENCOUNTER → 2022-10-19 09:58 | Outpatient (BNVA) | payer MEDICARE, OTHER, SELFPAY | PROVIDERS: PCP Nurse Practitioner Family; Visit Provider Nurse Practitioner Family | DX: R53.83 Other fatigue (principal); E55.9 Vitamin D deficiency, unspecified; R41.3 Other amnesia; E11.9 Type 2 diabetes mellitus without complications | CPT/HCPCS: 80053; 82306; 82607; 83036; 84443; 85025 ==

== ENCOUNTER → 2023-03-08 08:54 | Outpatient (BNVA) | payer MEDICARE, OTHER, SELFPAY | PROVIDERS: PCP Nurse Practitioner Family; Visit Provider Specialist | DX: Z95.0 Presence of cardiac pacemaker (principal); I10 Essential (primary) hypertension; E78.5 Hyperlipidemia, unspecified; Z87.891 Personal history of nicotine dependence; E11.9 Type 2 diabetes mellitus without complications; Z79.84 Long term (current) use of oral hypoglycemic drugs | CPT/HCPCS: 99214 ==

== ENCOUNTER → 2023-03-21 09:55 | Outpatient (BNVA) | payer MEDICARE, OTHER, SELFPAY | PROVIDERS: PCP Nurse Practitioner Family; Visit Provider Specialist | DX: R53.83 Other fatigue (principal); I10 Essential (primary) hypertension | CPT/HCPCS: 80061; 80076 ==

== ENCOUNTER → 2023-05-30 15:04 | Outpatient (BNVA) | payer MEDICARE, OTHER, SELFPAY | PROVIDERS: PCP Nurse Practitioner Family; Visit Provider Internal Medicine Cardiovascular Disease | DX: Z45.010 Encounter for checking and testing of cardiac pacemaker pulse generator [battery] (principal) | CPT/HCPCS: 93296 ==

== ENCOUNTER → 2023-07-25 11:04 | Outpatient (BNVA) | payer MEDICARE, OTHER, SELFPAY | PROVIDERS: PCP Nurse Practitioner Family; Visit Provider Nurse Practitioner Family | DX: E78.5 Hyperlipidemia, unspecified (principal); E55.9 Vitamin D deficiency, unspecified; R53.83 Other fatigue; E11.9 Type 2 diabetes mellitus without complications; I10 Essential (primary) hypertension; R42 Dizziness and giddiness; Z12.5 Encounter for screening for malignant neoplasm of prostate; H66.92 Otitis media, unspecified, left ear | CPT/HCPCS: 80053; 80061; 81003; 82306; 83036; 83540; 84443; 85025; G0103 ==

== ENCOUNTER → 2023-09-02 09:59 | Outpatient (BNVA) | payer MEDICARE, OTHER, SELFPAY | PROVIDERS: PCP Nurse Practitioner Family; Visit Provider Internal Medicine Cardiovascular Disease | DX: Z95.0 Presence of cardiac pacemaker (principal); R55 Syncope and collapse; I10 Essential (primary) hypertension; E11.9 Type 2 diabetes mellitus without complications; Z87.891 Personal history of nicotine dependence; Z79.84 Long term (current) use of oral hypoglycemic drugs | CPT/HCPCS: 99214 ==

== ENCOUNTER → 2023-09-09 10:37 | Outpatient (BNVA) | payer MEDICARE, OTHER, SELFPAY | PROVIDERS: PCP Nurse Practitioner Family; Visit Provider Internal Medicine Cardiovascular Disease | DX: Z45.010 Encounter for checking and testing of cardiac pacemaker pulse generator [battery] (principal) | CPT/HCPCS: 93296 ==

== ENCOUNTER → 2024-01-13 09:35 | Outpatient (BNVA) | payer MEDICARE, OTHER, SELFPAY | PROVIDERS: PCP Nurse Practitioner Family; Visit Provider Nurse Practitioner Family | DX: E11.9 Type 2 diabetes mellitus without complications (principal); I10 Essential (primary) hypertension; K22.70 Barrett's esophagus without dysplasia; Z12.5 Encounter for screening for malignant neoplasm of prostate; Z79.899 Other long term (current) drug therapy | CPT/HCPCS: 80053; 81003; 82728; 83036; 83735; 84443; 85025; G0103 ==

== ENCOUNTER → 2024-01-24 08:58 | Outpatient (BNVA) | payer MEDICARE, OTHER, SELFPAY | PROVIDERS: PCP Nurse Practitioner Family; Visit Provider Nurse Practitioner Family | DX: Z95.0 Presence of cardiac pacemaker (principal); I10 Essential (primary) hypertension; Z87.891 Personal history of nicotine dependence | CPT/HCPCS: 99214 ==

== ENCOUNTER 2024-01-29 09:55 | Outpatient (CLI) | payer MEDICARE, OTHER, SELFPAY ==
--- NOTE | 2024-01-29 10:15 | USCV_ITS ---
Krishna Fulton Age: 79 Gender: M : 1945 Exam Date: 01/29/2024 10:03 Ordering Phys: MAYRA Rodriguez APRN Technologist: MERT Exam Location: [facility] – [place] Indication: Syncope and Collapse Risk Factors: Previous Vascular Surgery: Right Brachial BP: / Left Brachial BP: / Right Left Velocity (cm/s) Spectral Plaque Velocity (cm/s) Spectral Plaque Syst/Diast Broadening Syst/Diast Broadening 76.30/ 16.70 Prox CCA 80.40 / 13.40 62.80/ 14.00 Mid CCA 72.70 / 10.80 70.50/ 16.60 Distal CCA 62.70 / 12.50 38.40/ 12.10 Prox ICA 36.30 / 11.10 42.30/ 11.90 Mid ICA 64.80 / 14.60 51.50/ 15.50 Distal ICA 60.90 / 13.60 63.40 ECA 61.50 0.70 ICA/CCA 1.00 Antegrade Vertebral Antegrade 41.00/ 11.80 cm/s 44.90/ 13.30 cm/s Tri Subclavian Tri 78.10 121.9 0 FINDINGS Comparison: none available. No significant elevation of systolic or diastolic velocities. Waveforms are normal. Mild diffuse carotid plaque and intimal thickening. Antegrade vertebral arteries. CONCLUSIONS Bilateral ICA stenosis less than 50%. Mild carotid atherosclerosis. Dr. Nicole Plummer DO (Electronically Signed) Final Date: 29 Jan 2024 10:52 S
== END 2024-01-29 09:56 | disposition home or self-care (01) ==
LOC: RAD 09:56
PROVIDERS: PCP Nurse Practitioner Family; Visit Provider Nurse Practitioner Family
DX: R55 Syncope and collapse (principal); R42 Dizziness and giddiness; I65.23 Occlusion and stenosis of bilateral carotid arteries
CPT/HCPCS: 93880

== ENCOUNTER 2024-02-08 22:16 | Emergency (ER) | payer MEDICARE, OTHER, SELFPAY ==
[2024-02-08 22:36] VITALS: BP 133/69; PULSE 98; RESP 18; TEMP 37.1; O2SAT 92; BMI 32.2
--- NOTE | 2024-02-08 22:39 | ECG_ITS ---
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 Measurements Intervals [place] Rate: 92 P: 67 MD: 202 QRS: -79 QRSD: 186 T: 95 QT: 410 QTc: 508 Interpretive Statements ELECTRONIC VENTRICULAR PACEMAKER ABNORMAL RHYTHM ECG Compared to ECG 01/21/2020 10:20:02 Electronic ventricular pacemaker is new Electronically Signed On 02-09-2024 13:28:27 CDT by Anam Morelos M.D. [id number]
[2024-02-09 00:24] VITALS: BP 145/83; PULSE 100; RESP 18; O2SAT 94
[2024-02-09 00:29] LABS: Basophils % 0.5 %; Eosinophils % 0.2 %; Hematocrit 41.8 % (37-53); Lymphocytes # 1.4 10^3/uL (0.8-4.8); Lymphocytes % 31.8 %; Mean Corpuscular HGB Conc 34.7 g/dL (30-55); Mean Corpuscular Hemoglobin 31.4 pg (27-33); Mean Corpuscular Volume 90.5 fl (82-101); Mean Platelet Volume 10.2 fL (7.4-10.4); Monocytes # 0.5 10^3/uL (0.2-0.9); Monocytes % 12.1 %; Neutrophils # 2.41 10^3/uL (1.8-7.7); Neutrophils % 55.2 %; Nucleated Red Blood Cells % 0 %; Platelet Count 143 10^3/cmm (157-399); Red Blood Count 4.62 10^6/uL (3.85-5.65); Red Cell Distribution Width 13.3 % (12.1-15.1); White Blood Count 4.37 10^3/uL (3.29-11.43)
[2024-02-09 00:54] LABS: Alanine Aminotransferase 38 U/L (0-41); Albumin Level 3.8 g/dL (3.5-5.2); Alkaline Phosphatase 77 U/L (40-130); Anion Gap 15.3 (5-19); Aspartate Amino Transferase 35 U/L (0-40); Blood Urea Nitrogen 23 mg/dL (8-23); Calcium 8.9 mg/dL (8.5-10.5); Carbon Dioxide 23 mmol/L (22-29); Chloride 100 mmol/L (98-107); Creatinine Clr Calc Pharmacy 50.9646; Globulin 3.3 g/dL (1.3-4.6); Glucose 178 mg/dL (65-115); NT Pro B Type Natriuretic Pept 92 pg/mL (0-450); Osmolality Calculated 286 mOsm/kg (285-295); Potassium 4.3 mmol/L (3.5-5.1); Sodium 134 mmol/L (136-145); Total Bilirubin 0.4 mg/dL (0.15-1.2); Total Protein 7.1 g/dL (6.6-8.7)
[2024-02-09 01:16] LABS: Bilirubin Urine 1+ (Negative); Blood Urine Neg (Negative); Glucose Urine UA Norm (Normal); Ketones Urine 1+ (Negative); Nitrate Urine Negative (Negative); Protein Urine Trace (Negative); Urine Appearance Clear (CLEAR); Urine Color Yellow (Yellow); pH Urine 5 (5-7)
[2024-02-09 01:17] LABS: Add Urine Microscopic? YES; Bacteria Urine 1+ /hpf; Hyaline Casts Urine 0-4 /lpf; Leukocyte Esterase Urine Negative (Negative); Mucus Urine 3+ /hpf; RBC Urine 0-4 /hpf (0-2); Squamous Epithelial Cell Urine 0-4 /hpf (0-5); Urobilinogen Urine Neg (Negative); WBC Urine 0-4 /hpf (0-5)
--- NOTE | 2024-02-09 01:22 | CTR_ITS ---
PROCEDURE INFORMATION: Exam: CTA Head With Contrast, Arteriography Exam date and time: 02/09/2024 1:20 AM Age: 79 years old Clinical indication: Dizziness and giddiness; Prior surgery; Surgery date: 6+ months; Surgery type: Pacer; Patient HX: C/O dizziness with neck pain post chiropractic cervical adjustment on 02/05/2024. TECHNIQUE: Imaging protocol: Computed tomographic angiography of the head with contrast. Exam focused on the arteries. 3D rendering (Not supervised by radiologist): MIP and/or 3D reconstructed images were created by the technologist. Radiation optimization: All CT scans at this facility use at least one of these dose optimization techniques: automated exposure control; mA and/or kV adjustment per patient size (includes targeted exams where dose is matched to clinical indication); or iterative reconstruction. Contrast material: OMNI 350; Contrast volume: 100 ml; Contrast route: INTRAVENOUS (IV); COMPARISON: CT sinus wo con* [id number] 10/04/2022 12:03 PM RADIATION DOSE METRICS: Total DLP (mGy-cm): 1087.82 FINDINGS: ANTERIOR CIRCULATION: Right internal carotid artery: Intracranial segment is patent with no significant stenosis. No aneurysm. Moderate cavernous calcified plaque. Right middle cerebral artery: No occlusion or significant stenosis. No aneurysm. Right anterior cerebral artery: No occlusion or significant stenosis. No aneurysm. Left internal carotid artery: Intracranial segment is patent with no significant stenosis. No aneurysm. Moderate cavernous calcified plaque. Left middle cerebral artery: No occlusion or significant stenosis. No aneurysm. Left anterior cerebral artery: No occlusion or significant stenosis. No aneurysm. POSTERIOR CIRCULATION: Right vertebral artery: The distal right vertebral artery is small, likely on a congenital basis or due to chronic vascular disease. No aneurysm. May end in PICA or AICA as a congenital vascular variant. Left vertebral artery: No occlusion or significant stenosis. No aneurysm. Basilar artery: No occlusion or significant stenosis. No aneurysm. Right posterior cerebral artery: No occlusion or significant stenosis. No aneurysm. Left posterior cerebral artery: No occlusion or significant stenosis. No aneurysm. Brain: No focal hemorrhage or midline shift identified. Atrophy with chronic white matter ischemia. Cerebral ventricles: No evidence of ventriculomegaly or hydrocephalus. The ventricles seem age-appropriate. Paranasal sinuses: A few areas of mild sinus mucosal thickening. Bones/joints: Stable right frontal sinus chronic deformity. No acute fracture. Soft tissues: Unremarkable. PROCEDURE INFORMATION: Exam: CTA Neck With Contrast Exam date and time: 02/09/2024 1:20 AM Age: 79 years old Clinical indication: Dizziness and giddiness; Prior surgery; Surgery date: 6+ months; Surgery type: Pacer; Patient HX: C/O dizziness with neck pain post chiropractic cervical adjustment on 02/05/2024. TECHNIQUE: Imaging protocol: Computed tomographic angiography of the neck with contrast. Exam focused on the cervical segments of the vasculature. 3D rendering (Not supervised by radiologist): MIP and/or 3D reconstructed images were created by the technologist. Radiation optimization: All CT scans at this facility use at least one of these dose optimization techniques: automated exposure control; mA and/or kV adjustment per patient size (includes targeted exams where dose is matched to clinical indication); or iterative reconstruction. Contrast material: OMNI 350; Contrast volume: 100 ml; Contrast route: INTRAVENOUS (IV); COMPARISON: CT sinus wo con* [id number] 10/04/2022 12:03 PM RADIATION DOSE METRICS: Total DLP (mGy-cm): 1087.82 FINDINGS: Right common carotid artery: No stenosis. No dissection or occlusion. Right internal carotid artery: No stenosis of the extracranial segment. No dissection or occlusion. Right external carotid artery: No occlusion or high-grade stenosis identififed. Left common carotid artery: No stenosis. No dissection or occlusion. Left internal carotid artery: No stenosis of the extracranial segment. No dissection or occlusion. Left external carotid artery: No occlusion or high-grade stenosis identififed. Right vertebral artery: No stenosis. No dissection or occlusion. Left vertebral artery: No stenosis. No dissection or occlusion. Dominant. Thyroid: Few minute thyroid nodularities are subcentimeter in size. Soft tissues: No significant soft tissue swelling or other acute finding noted. Bones/joints: No acute fracture. CT/CT angio headneck* [id number] IMPRESSION: 1. No [place] high-grade stenosis or occlusion. 2. No focal hemorrhage or midline shift. 3. [id number] age-related change. 4. The distal right vertebral artery is small, likely on a congenital basis or due to chronic vascular disease. There is good flow in the basilar artery, left vertebral, and both java software. IMPRESSION: No stenosis or occlusion. REFERENCES: NASCET CRITERIA. The degree of stenosis in the cervical segment of the internal carotid artery is based on NASCET criteria. Normal is no stenosis. Mild is less than 50% stenosis. Moderate is 50-69% stenosis. Severe is 70% to 99% stenosis. Total occlusion is no detectable patent lumen.
[2024-02-09] MEDS: iohexol 350 mg/mL 500 mL Btl (per mL) IV (01:32)
--- NOTE | 2024-02-09 01:48 | W.ED.DIZZY ---
HPI - Dizziness General: Chief Complaint: Dizziness Stated Complaint: Dissinesss/fell twice today Time Seen by Provider: 02/09/24 00:00 History of Present Illness: HPI Narrative: 79-year-old male with a previous history of vertigo. He has had increased symptoms the past 5 days or so with generalized weakness, frequent falls. He fell once yesterday and twice today, usually with change in position especially while getting up from a sitting position. He notes that if he turns, he is very unsteady on his feet. He received chiropractic manipulation on Saturday for the second time for neck pain while trying to turn his head to the right. He is experiencing ongoing neck and mild head pain. No problems with speech, language, vision, weakness to 1 side, etc. Associated symptoms: Denies chest pain, chills, nausea, palpitations or vomiting Associated neuro symptoms: Deny confusion Review of Systems Const: Denies: fever(s), chills or body aches Eyes: Denies: change in vision Card: Denies: chest pain or palpitations Resp: Denies: dyspnea, productive cough, non-productive cough or wheezing GI: Denies: abdominal pain, nausea, vomiting, diarrhea or hematochezia Skin/Breast: Denies: rash Neuro: Denies: weakness in extremities or confusion PFSH ED PFSH: Medical History Dizziness and giddiness Memory loss, short term Near syncope Enrolled in chronic care management please do not remove from active Prostate cancer screening Sleep apnea Lower respiratory infection Cellulitis Left otitis media Prostate cancer History of radiation therapy Skin inflammation Ear noise/buzzing Otitis media Environmental and seasonal allergies Acute bacterial sinusitis Acute exacerbation of chronic low back pain Chronic shoulder pain Hypoxia Symptomatic bradycardia Pacemaker Penny esophagus Diabetes Elevated PSA Essential hypertension GERD (gastroesophageal reflux disease) Heart block Lung granuloma Mobitz II Obesity Chronic seasonal allergic rhinitis Thyroid nodule Vitamin D deficiency Sinusitis Surgical History Status post appendectomy Status post operation on nasal sinus Family History Mother , at age 65 CAD (coronary artery disease) Cancer Diabetes Lung disease Father , at age 90 Anesthesia complication Dementia Denies family history of Clotting disorder Chronic kidney disease (CKD) Suicide Bleeding disorder Stroke Social History Smoking and tobacco/nicotine status: former use of tobacco/nicotine Alcohol intake: former Substance/Drug Use: never Marital status: Current occupational status: retired Physical Exam Const: COMMON NORMALS: no acute distress and alert GENERAL APPEARANCE: cooperative; not ill appearing and not frail appearing HENMT: COMMON NORMALS: normocephalic, atraumatic and Normal external nose present HEAD & SCALP: normocephalic and atraumatic FACE & SINUS: normal facial exam and face symmetric NOSE: Normal external nose present Eye: COMMON NORMALS: Equal, round and reactive pupils present and EOMs intact bilaterally PUPIL: Yes Equal, round and reactive pupils present Neck/C-Spine: GENERAL: Yes trachea midline Chest: CHEST: Yes Symmetrical chest wall rise Resp: COMMON NORMALS: normal respiratory effort, No retractions, No use of accessory muscles and clear to auscultation bilaterally AUSCULTATION: clear to auscultation bilaterally Cardio: COMMON NORMALS: regular rate and regular rhythm RATE: regular rate RHYTHM: regular rhythm GI: COMMON NORMALS: Normal to inspection, nondistended, normoactive bowel sounds present Extremity: COMMON NORMALS: no pedal edema Neuro: MARTA COMA SCALE: document GCS findings [place] coma scale eye opening: Spontaneous Marta coma scale verbal response: Orientated Marta coma scale motor response: Obey commands [place] coma scale total score: 15 SENSORIUM/ORIENTATION: Yes alert CRANIAL NERVES: Yes CN normal except as noted COORDINATION/BALANCE: yycevg-re-iwpt test normal and rcaa-oi-oviv test normal SPEECH: speech normal SENSORY EXAM: Yes extremities (intact) MOTOR EXAM: Pronator motor function not present, Normal motor muscle tone present throughout and No Tremors during motor activity present COORDINATION: [id number]-yq-[id number] test normal and zyhu-ij-gocs test normal Psych: COMMON NORMALS: speech normal SPEECH: Yes normal speech Skin: COMMON NORMALS: no rashes or lesions noted GENERAL SKIN EXAM: no rashes or lesions noted Course Vital Signs: Vital signs: Vital Signs Temperature 98.8 F 02/08/24 22:36 Pulse Rate 85 02/09/24 02:47 Respiratory Rate 18 02/09/24 02:47 Blood Pressure 134/82 02/09/24 02:47 Pulse Oximetry 94 02/09/24 02:47 Oxygen Delivery Me thod Room Air 02/09/24 00:24 MDM - Dizziness Medical Decision Making 79-year-old male with vertigo symptoms. No localizing neurologic problems. CBC is not remarkable. BMP is not terribly remarkable. Urinalysis is negative. CTA of the head and neck is performed due to recent chiropractic manipulation with dizziness. It shows no vertebral artery dissection or occlusion. No hemorrhage or mass effect. Lab Data 02/09/24 00:22 02/09/24 00:22 Radiology Impressions Head/Neck CTA 02/09/24 01:22 IMPRESSION: 1. No [place] high-grade stenosis or occlusion. 2. No focal hemorrhage or midline shift. 3. Itba-to-zfmkiuae age-related change. 4. The distal right vertebral artery is small, likely on a congenital basis or due to chronic vascular disease. There is good flow in the basilar artery, left vertebral, and both kiln charger. IMPRESSION: No stenosis or occlusion. REFERENCES: NASCET CRITERIA. The degree of stenosis in the cervical segment of the internal carotid artery is based on NASCET criteria. Normal is no stenosis. Mild is less than 50% stenosis. Moderate is 50-69% stenosis. Severe is 70% to 99% stenosis. Total occlusion is no detectable patent lumen. Laboratory Results WBC 4.37 10^3/uL (3.29-11.43) 02/09/24 00:22 RBC 4.62 10^6/uL (3.85-5.65) 02/09/24 00:22 Hgb 14.50 g/dL (11.27-16.99) 02/09/24 00:22 Hct 41.8 % (37-53) 02/09/24 00:22 MCV 90.5 fl (82-101) 02/09/24 00:22 MCH 31.4 pg (27-33) 02/09/24 00: MCHC 34.7 g/dL (30-55) 02/09/24 00:22 RDW 13.3 % (12.1-15.1) 02/09/24 00:22 Plt Count 143 10^3/cmm (157-399) L 02/09/24 00:22 MPV 10.2 fL (7.4-10.4) 02/09/24 00:22 Neut % (Auto) 55.2 % 02/09/24 00:22 Lymph % (Auto) 31.8 % 02/09/24 00:22 [place] % (Auto) 12.1 % 02/09/24 00:22 Eos % (Auto) 0.2 % 02/09/24 00:22 Baso % (Auto) 0.5 % 02/09/24 00:22 Neut # (Auto) 2.41 10^3/uL (1.8-7.7) 02/09/24 00:22 Lymph # (Auto) 1.4 10^3/uL (0.8-4.8) 02/09/24 00:22 [place] # (Auto) 0.5 10^3/uL (0.2-0.9) 02/09/24 00:22 Eos # (Auto) 0.0 10^3/uL (0.0-0.8) 02/09/24 00:22 Baso # (Auto) 0.0 10^3/uL (0.0-0.1) 02/09/24 00:22 Nucleated RBC % (auto) 0 % 02/09/24 00: Nucleated RBCs # 0.0 /100WBC 02/09/24 00:22 Sodium 134 mmol/L (136-145) L 02/09/24 00:22 Potassium 4.3 mmol/L (3.5-5.1) 02/09/24 00: Chloride 100 mmol/L (98-107) 02/09/24 00:22 Carbon Dioxide 23 mmol/L (22-29) 02/09/24 00:22 Anion Gap 15.3 (5-19) 02/09/24 00:22 BUN 23 mg/dL (8-23) 02/09/24 00:22 Creatinine 1.3 mg/dL (0.7-1.2) H 02/09/24 00:22 GFR Calculation Not Reportable 02/09/24 00:22 Glucose 178 mg/dL (65-115) H 02/09/24 00:22 Calculated Osmolality 286 mOsm/kg (285-295) 02/09/24 00:22 Calcium 8.9 mg/dL (8.5-10.5) 02/09/24 00:22 Total Bilirubin 0.4 mg/dL (0.15-1.2) 02/09/24 00:22 AST 35 U/L (0-40) 02/09/24 00:22 ALT 38 U/L (0-41) 02/09/24 00:22 Alkaline Phosphatase 77 U/L (40-130) 02/09/24 00:22 NT-Pro-B Natriuret Pep 92 pg/mL (0-450) 02/09/24 00:22 Total Protein 7.1 g/dL (6.6-8.7) 02/09/24 00:22 Albumin 3.8 g/dL (3.5-5.2) 02/09/24 00: Globulin 3.3 g/dL (1.3-4.6) 02/09/24 00:22 Urine Color Yellow (Yellow) 02/09/24 00:51 Urine Appearance Clear (CLEAR) 02/09/24 00:51 Urine pH 5 (5-7) 02/09/24 00:51 Ur Specific [place] 1.020 (1.005-1.030) 02/09/24 00:51 Urine Protein Trace (Negative) 02/09/24 00:51 Urine Glucose (UA) Norm (Normal) 02/09/24 00:51 Urine Ketones 1+ (Negative) H 02/09/24 00:51 Urine Blood Neg (Negative) 02/09/24 00:51 Urine Nitrate Negative (Negative) 02/09/24 00:51 Urine Bilirubin 1+ (Negative) H 02/09/24 00:51 Urine Urobilinogen Neg mg/dL (Negative) 02/09/24 00:51 Ur Leukocyte Esterase Negative (Negative) 02/09/24 00:51 Urine RBC 0-4 /hpf (0-2) H 02/09/24 00:51 Urine WBC 0-4 /hpf (0-5) H 02/09/24 00:51 Ur Squamous Epith Cells 0-4 /hpf (0-5) H 02/09/24 00:51 Amorphous Sediment Not Reportable 02/09/24 00:51 Urine Bacteria 1+ /hpf (NONE) H 02/09/24 00:51 Hyaline Casts 0-4 /lpf H 02/09/24 00:51 Urine Mucus 3+ /hpf 05/19/24 00:51 All radiology interpretation(s) finalized by discharge Discharge Plan Discharge Patient Disposition: Home Clinical Impression: Vertigo Condition: Stable Prescriptions: New meclizine 25 mg tablet 25 mg PO TID PRN (Reason: dizziness) Qty: 30 0RF No Action cetirizine 10 mg tablet 10 mg PO DAILY PRN biotin 1 mg tablet 1 mg PO DAILY tamsulosin [Flomax] 0.4 mg capsule 0.4 mg PO DAILY triamcinolone acetonide 40 mg/mL suspension 40 mg IM ONCE Qty: 1 0RF mupirocin calcium 2 % cream 1 applic topical BID PRN (Reason: inflamed lesion) 30 Days Qty: 15 1RF atorvastatin 10 mg tablet 10 mg PO DAILY Qty: 30 5RF omeprazole 40 mg capsule,delayed release(DR/EC) See Rx Instructions .ROUTE .COMPLEX Qty: 90 1RF Dose Instruction: TAKE 1 CAPSULE BY MOUTH EVERY DAY Rx Instructions: TAKE 1 CAPSULE BY MOUTH EVERY DAY (DME) Accu-Chek Karen Plus test strp Strip See Rx Instructions .ROUTE .COMPLEX Qty: 50 0RF Dose Instruction: USE TO CHECK BLOOD SUGARS ONCE DAILY DIRECTED Rx Instructions: USE TO CHECK BLOOD SUGARS ONCE DAILY DIRECTED Januvia 25 mg tablet See Rx Instructions .ROUTE .COMPLEX Qty: 90 1RF Dose Instruction: TAKE ONE TABLET BY MOUTH DAILY Rx Instructions: TAKE ONE TABLET BY MOUTH DAILY metoprolol succinate 25 mg tablet extended release 24 hr 25 mg PO DAILY Qty: 90 3RF montelukast 10 mg tablet See Rx Instructions .ROUTE .COMPLEX Qty: 30 2RF Dose Instruction: TAKE 1 TABLET BY MOUTH EVERY DAY Rx Instructions: TAKE 1 TABLET BY MOUTH EVERY DAY amlodipine 5 mg tablet See Rx Instructions .ROUTE .COMPLEX Qty: 180 1RF Dose Instruction: TAKE TWO TABLETS BY MOUTH DAILY FOR 90 DAYS Rx Instructions: TAKE TWO TABLETS BY MOUTH DAILY FOR 90 DAYS Discharge Orders: Discharge ED (Routine); Ordered 02/09/24 Ordered By: Duncan Melton Referrals: MAYRA Rodriguez, ACTUARIAL TRAINEE [Primary Care Provider] - 4-7 days Patient Instructions: Vertigo (ED), Opioid Safety, Pain Management Activity Restrictions/Additional Instructions: Take medication as directed. Take 3 times daily until dizziness begins to improve, then you can taper down to 2 and then 1 and then off. Return for worsening symptoms despite treatment. Return for language problems, weakness, vision problems, other concerning symptoms. Follow-up with your doctor this week. Coding Level of Care Code ED [place] for Anthony Alston
[2024-02-09] MEDS: meclizine 25 mg tablet PO (02:42)
[2024-02-09 02:47] VITALS: BP 134/82; PULSE 85; RESP 18; O2SAT 94
== END 2024-02-09 02:45 | disposition home or self-care (01) ==
PROVIDERS: Emergency Provider Emergency Medicine; PCP Nurse Practitioner Family
DX: R42 Dizziness and giddiness (principal); Z87.891 Personal history of nicotine dependence
CPT/HCPCS: 70496; 70498; 80053; 81001; 83880; 85025; 93005; 99285; J8597; Q9967

== ENCOUNTER 2024-04-21 06:00 | Outpatient (RCR) | payer MEDICARE, OTHER, SELFPAY | END 2024-04-22 23:59 | disposition home or self-care (01) | LOC: WPT 06:00 | PROVIDERS: PCP Nurse Practitioner Family; Visit Provider Nurse Practitioner | DX: R42 Dizziness and giddiness (principal) | CPT/HCPCS: 97110; 97161 ==

== ENCOUNTER 2024-04-23 06:00 | Outpatient (RCR) | payer MEDICARE, OTHER, SELFPAY | END 2024-05-23 23:59 | disposition home or self-care (01) | LOC: WPT 06:00 | PROVIDERS: PCP Nurse Practitioner Family; Visit Provider Nurse Practitioner | DX: R42 Dizziness and giddiness (principal) | CPT/HCPCS: 97110; 97112; 97530 ==

== ENCOUNTER → 2024-07-29 08:33 | Outpatient (BNVA) | payer MEDICARE, OTHER, SELFPAY | PROVIDERS: PCP Nurse Practitioner Family; Visit Provider Nurse Practitioner Family | DX: Z12.5 Encounter for screening for malignant neoplasm of prostate (principal); E55.9 Vitamin D deficiency, unspecified; I10 Essential (primary) hypertension; E11.9 Type 2 diabetes mellitus without complications; E78.2 Mixed hyperlipidemia | CPT/HCPCS: 80053; 80061; 81003; 82306; 83036; 85025; G0103 ==

== ENCOUNTER → 2024-09-07 10:06 | Outpatient (BNVA) | payer MEDICARE, OTHER, SELFPAY | PROVIDERS: PCP Nurse Practitioner Family; Visit Provider Internal Medicine Cardiovascular Disease | DX: I10 Essential (primary) hypertension (principal); Z95.0 Presence of cardiac pacemaker; E78.2 Mixed hyperlipidemia; I48.19 Other persistent atrial fibrillation; E11.9 Type 2 diabetes mellitus without complications; Z87.891 Personal history of nicotine dependence | CPT/HCPCS: 99214 ==

== ENCOUNTER 2024-09-28 05:49 | Observation (INO) | payer MEDICARE, OTHER, SELFPAY ==
[2024-09-28] VITALS (63 sets, daily range): BP systolic 104–150; BP diastolic 70–97; PULSE 68–117; RESP 16–41; TEMP 36.6–37.4; O2SAT 90–98; BMI 30.4
--- NOTE | 2024-09-28 05:58 | XRR_ITS ---
PROCEDURE INFORMATION: Exam: XR Chest Exam date and time: 09/28/2024 6:18 AM Age: 79 years old Clinical indication: Chest pressure; Prior surgery; Surgery date: 6+ months; Surgery type: Pacer; Patient HX: C/O chest pain. History of copd. TECHNIQUE: Imaging protocol: Radiologic exam of the chest. Views: 1 view. COMPARISON: CR XR chest 1V portable [id number] 06/28/2020 1:03 PM FINDINGS: Tubes, catheters and devices: Multilead pacemaker/defibrillator. Lungs: Hypoventilatory changes the lung bases. Pleural spaces: Unremarkable. No pleural effusion. No pneumothorax. Heart/Mediastinum: See Vasculature finding. Vasculature: Moderate cardiomegaly and uncoiling of the thoracic aorta. Bones/joints: Unremarkable. XR/XR chest 1V portable [id number] IMPRESSION: No acute findings.
--- NOTE | 2024-09-28 05:58 | ECG_ITS ---
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 Measurements Intervals [place] Rate: 79 P: 79 MT: 202 QRS: -81 QRSD: 207 T: 91 QT: 462 QTc: 532 Interpretive Statements ELECTRONIC VENTRICULAR PACEMAKER ABNORMAL RHYTHM ECG Compared to ECG 02/08/2024 22:41:30 No significant changes Electronically Signed On 09-28-2024 17:10:22 SUPERVISOR ASSEMBLY DEPARTMENT by Jaiden Maria M.D. [email or web address]
--- NOTE | 2024-09-28 06:02 | PC.NURSE ---
Pt. had aspirin and nitro in ambulance. According to [facility] consulting property manager, Pt's blood pressure dropped very low due to nitro.
[2024-09-28 06:13] LABS: Basophils % 0.4 %; Eosinophils # 0.1 10^3/uL (0.0-0.8); Hematocrit 41.9 % (37-53); Lymphocytes # 1.8 10^3/uL (0.8-4.8); Lymphocytes % 21.7 %; Mean Corpuscular HGB Conc 35.1 g/dL (30-55); Mean Corpuscular Hemoglobin 31.3 pg (27-33); Mean Corpuscular Volume 89.1 fl (82-101); Mean Platelet Volume 10.2 fL (7.4-10.4); Monocytes # 0.5 10^3/uL (0.2-0.9); Monocytes % 6.4 %; Neutrophils # 5.91 10^3/uL (1.8-7.7); Neutrophils % 70.1 %; Nucleated Red Blood Cells % 0 %; Platelet Count 173 10^3/cmm (157-399); Red Cell Distribution Width 13.1 % (12.1-15.1); White Blood Count 8.42 10^3/uL (3.29-11.43)
[2024-09-28 06:37] LABS: Troponin(5th) Baseline 46 ng/L (0-15)
[2024-09-28 06:42] LABS: Alanine Aminotransferase 22 U/L (0-41); Albumin Level 4.1 g/dL (3.5-5.2); Alkaline Phosphatase 104 U/L (40-130); Anion Gap 22.6 (5-19); Aspartate Amino Transferase 23 U/L (0-40); Blood Urea Nitrogen 24 mg/dL (8-23); Calcium 9.2 mg/dL (8.5-10.5); Carbon Dioxide 22 mmol/L (22-29); Chloride 99 mmol/L (98-107); Creatinine Clr Calc Pharmacy 49.5687; Glucose 252 mg/dL (65-115); Osmolality Calculated 303 mOsm/kg (285-295); Potassium 3.6 mmol/L (3.5-5.1); Sodium 140 mmol/L (136-145); Total Bilirubin 0.3 mg/dL (0.15-1.2); Total Protein 7.1 g/dL (6.6-8.7)
--- NOTE | 2024-09-28 06:46 | ED_ITS ---
HPI - Chest Pain 2 General: Chief Complaint: Chest Pain Stated Complaint: CP Time Seen by Provider: 09/28/24 05:52 History of Present Illness: 79-year-old male presents emergency room complaining of chest pain. Patient chest pain while at rest. EMS was called they did give him a nitro which resolved his pain initially arrived here Dr. Melton seen him and EKG showed a paced rhythm. He has no further chest pain no shortness of breath at the time of presentation. Associated symptoms: Deny abdominal pain, dyspnea or fever(s) Related Data Home Medications Medication Instructions Recorded Confirmed amlodipine 5 mg tablet 10 mg PO DAILY 09/28/24 09/28/24 metoprolol succinate 25 mg 25 mg PO QPM 09/28/24 09/28/24 tablet,extended release 24 hr montelukast 10 mg tablet 10 mg PO QPM 09/28/24 09/28/24 omeprazole 40 mg capsule,delayed 40 mg PO DAILY 09/28/24 09/28/24 release tamsulosin 0.4 mg capsule 0.4 mg PO QPM 09/28/24 09/28/24 Previous Rx's Medication Instructions Recorded blood sugar diagnostic (Accu-Chek #100 strips 08/04/24 Karen Plus test strips) cholecalciferol (vitamin D3) 25 25 mcg PO DAILY #30 caps 08/04/24 mcg (1,000 unit) capsule dapagliflozin propanediol 10 mg 10 mg PO DAILY 90 days #90 tabs 09/02/24 tablet (Farxiga) fluticasone propionate 50 2 spray intranasal DAILY PRN nasal 09/02/24 mcg/actuation nasal congestion 30 days #16 grams spray,suspension (Flonase Allergy Relief) apixaban 2.5 mg tablet (Eliquis) 2.5 mg PO BID #60 tabs 09/07/24 Allergies Allergy/AdvReac Type Severity Reaction Status Date / Time Sulfa (Sulfonamide Allergy upset Verified 09/07/24 10:12 Antibiotics) stomach Review of Systems 2 Const: Denies: fever(s) or chills Card: Reports: chest pain Resp: Denies: dyspnea GI: Denies: abdominal pain : Denies: dysuria, urinary frequency or urinary urgency Musc: Denies: neck pain or back pain Skin/Breast: Denies: rash PFSH ED 2 PFSH: Medical History (Updated 09/28/24 @ 16:42 by Nelson Troy DO) Chronic kidney disease Diabetes mellitus, type II Pharyngitis Left otitis media Cervical pain (neck) Eustachian tube dysfunction Dizziness and giddiness Memory loss, short term Near syncope Enrolled in chronic care management please do not remove from active Prostate cancer screening Sleep apnea Lower respiratory infection Cellulitis Prostate cancer History of radiation therapy Skin inflammation Ear noise/buzzing Otitis media Environmental and seasonal allergies Acute bacterial sinusitis Acute exacerbation of chronic low back pain Chronic shoulder pain Hypoxia Symptomatic bradycardia Pacemaker Penny esophagus Diabetes Elevated PSA Essential hypertension GERD (gastroesophageal reflux disease) Heart block Lung granuloma Mobitz II Obesity Chronic seasonal allergic rhinitis Thyroid nodule Vitamin D deficiency Sinusitis Surgical History Status post appendectomy Status post operation on nasal sinus Family History Mother , at age 65 CAD (coronary artery disease) Cancer Diabetes Lung disease Father , at age 90 Anesthesia complication Dementia Denies family history of Clotting disorder Chronic kidney disease (CKD) Suicide Bleeding disorder Stroke Social History Smoking and tobacco/nicotine status: former use of tobacco/nicotine Alcohol intake: former Substance/Drug Use: never Marital status: Current occupational status: retired Physical Exam 2 Const: GENERAL APPEARANCE: cooperative ORIENTATION/CONSCIOUSNESS: Yes awake, Yes oriented to person, Yes oriented to place and Yes oriented to time HENMT: COMMON NORMALS: normocephalic, atraumatic and hearing grossly normal bilaterally HEAD & SCALP: normocephalic and atraumatic Resp: COMMON NORMALS: normal respiratory effort, No retractions, No use of accessory muscles and clear to auscultation bilaterally AUSCULTATION: clear to auscultation bilaterally Cardio: COMMON NORMALS: regular rate, regular rhythm and No murmurs present (Cardio) RATE: regular rate RHYTHM: regular rhythm GI: COMMON NORMALS: Soft to palpation and No hepatosplenomegaly present A USCULTATION: Yes normoactive bowel sounds PALPATION: Yes Soft to palpation, No Tenderness to palpation present (GI), No Guarding due to palpation present (GI) and Yes No hepatosplenomegaly present Extremity: COMMON NORMALS: normal to inspection, capillary refill normal, no clubbing, cyanosis or edema, no calf tenderness and no pedal edema Neuro: SENSORIUM/ORIENTATION: Yes oriented to person, Yes oriented to place and Yes oriented to time Skin: COMMON NORMALS: no rashes or lesions noted GENERAL SKIN EXAM: no rashes or lesions noted Course 2 Vital Signs: Vital signs: Vital Signs Temperature 97.8 F 09/28/24 12:00 Pulse Rate 98 09/28/24 12:00 Respiratory Rate 20 H 09/28/24 12:00 Blood Pressure 127/86 09/28/24 12:00 Pulse Oximetry 94 09/28/24 12:00 Oxygen Delivery Me thod Room Air 09/28/24 12:13 Oxygen Flow Rate 2 09/28/24 06:30 MDM - Chest Pain Medical Decision Making Positive delta troponin no further chest pain discussed with Dr. Flores explained to the patient directly to the Pile Driving Setter. Patient listed apixaban on his medication list but he never actually started it was started because it picked up some A-fib on him pacemaker check. Admit to hospitalist. Discussed Dr. Billy. Medical Records I reviewed the patient's medical records. Lab Data I reviewed the patient's lab results. 09/28/24 06:01 09/28/24 06:01 Radiology Impressions Chest X-Ray 09/28/24 05:58 IMPRESSION: No acute findings. Laboratory Results WBC 8.42 10^3/uL (3.29-11.43) 09/28/24 06:01 RBC 4.70 10^6/uL (3.85-5.65) 09/28/24 06:01 Hgb 14.70 g/dL (11.27-16.99) 09/28/24 06:01 Hct 41.9 % (37-53) 09/28/24 06:01 MCV 89.1 fl (82-101) 09/28/24 06:01 MCH 31.3 pg (27-33) 09/28/24 06:01 MCHC 35.1 g/dL (30-55) 09/28/24 06:01 RDW 13.1 % (12.1-15.1) 09/28/24 06:01 Plt Count 173 10^3/cmm (157-399) 09/28/24 06:01 MPV 10.2 fL (7.4-10.4) 09/28/24 06:01 Neut % (Auto) 70.1 % 09/28/24 06:01 Lymph % (Auto) 21.7 % 09/28/24 06:01 [place] % (Auto) 6.4 % 09/28/24 06:01 Eos % (Auto) 1.0 % 09/28/24 06:01 Baso % (Auto) 0.4 % 09/28/24 06:01 Neut # (Auto) 5.91 10^3/uL (1.8-7.7) 09/28/24 06:01 Lymph # (Auto) 1.8 10^3/uL (0.8-4.8) 09/28/24 06:01 [place] # (Auto) 0.5 10^3/uL (0.2-0.9) 09/28/24 06:01 Eos # (Auto) 0.1 10^3/uL (0.0-0.8) 09/28/24 06:01 Baso # (Auto) 0.0 10^3/uL (0.0-0.1) 09/28/24 06:01 Nucleated RBC % (auto) 0 % 09/28/24 06:01 Nucleated RBCs # 0.0 /100WBC 09/28/24 06:01 Sodium 140 mmol/L (136-145) 09/28/24 06:01 Potassium 3.6 mmol/L (3.5-5.1) 09/28/24 06:01 Chloride 99 mmol/L (98-107) 09/28/24 06:01 Carbon Dioxide 22 mmol/L (22-29) 09/28/24 06:01 Anion Gap 22.6 (5-19) H 09/28/24 06:01 BUN 24 mg/dL (8-23) H 09/28/24 06:01 Creatinine 1.3 mg/dL (0.7-1.2) H 09/28/24 06:01 GFR Calculation Not Reportable 09/28/24 06:01 Glucose 252 mg/dL (65-115) H 09/28/24 06:01 Calculated Osmolality 303 mOsm/kg (285-295) H 09/28/24 06:01 Calcium 9.2 mg/dL (8.5-10.5) 09/28/24 06:01 Total Bilirubin 0.3 mg/dL (0.15-1.2) 09/28/24 06:01 AST 23 U/L (0-40) 09/28/24 06:01 ALT 22 U/L (0-41) 09/28/24 06:01 Alkaline Phosphatase 104 U/L (40-130) 09/28/24 06:01 Troponin T Baseline 46 ng/L (0-15) H 09/28/24 06:01 Troponin T 120 Minute 54.07 ng/L (0-15) H 09/28/24 08:05 Delta Troponin T 8.07 ABS# (0-10) 09/28/24 08:05 Total Protein 7.1 g/dL (6.6-8.7) 09/28/24 06:01 Albumin 4.1 g/dL (3.5-5.2) 09/28/24 06:01 Globulin 3.0 g/dL (1.3-4.6) 09/28/24 06:01 TSH 3.30 uIU/mL (0.27-4.20) 09/28/24 06:01 All radiology interpretation(s) finalized by discharge Discharge Plan Discharge Patient Disposition: Admitted As Inpatient Admit Provider: Dann Flores Clinical Impression: NSTEMI (non-ST elevated myocardial infarction), Diabetes mellitus, type II Condition: Stable Coding Level of Care Code ED Clinical Specialist for Anthony Alston
--- NOTE | 2024-09-28 07:35 | PC.PHAR ---
patients answered all pharmacy questions, doctor put him on eliquis but patient hasnt yet taken because scared of it?? and cost as well. next they did switch januvia to farxiga
[2024-09-28 08:30] LABS: Troponin 5 2HR 54.07 ng/L (0-15); Troponin 5 2HR Delta 8.07 ABS# (0-10)
--- NOTE | 2024-09-28 08:33 | ECG_ITS ---
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 Measurements Intervals [place] Rate: 92 P: 95 [place]: 192 QRS: -79 QRSD: 202 T: 91 QT: 432 QTc: 536 Interpretive Statements ELECTRONIC VENTRICULAR PACEMAKER ABNORMAL RHYTHM ECG Compared to ECG 09/28/2024 05:54:30 No significant changes Electronically Signed On 09-28-2024 17:22:34 MANAGER OF DISASTER RECOVERY by Jaiden Maria M.D. [email or web address]
--- NOTE | 2024-09-28 09:22 | P.CONIM_ITS ---
<Statement entered by Dann Flores M.D - 09/28/24 19:22> Patient was evaluated and cared for in conjunction with an advanced practice practitioner. I personally examined the patient and reviewed the chart and all pertinent data including imaging, telemetry, and laboratory results. I discussed the patient in detail with the advanced practice practitioner. Please see their note for complete consult note, results and agreed upon plan of care for the patient. Briefly patient has presented with significant substernal chest pain since this morning. Troponins are elevated. EKG shows paced rhythm GENERAL: Patient is alert and oriented HEART: Regular S1 and S2 LUNGS: Diminished air entry bilaterally EXTREMITIES: Lower extremities with 1+ edema ASSESSMENT AND PLAN (1) NSTEMI (non-ST elevated myocardial infarction) (2) Atrial fibrillation (3) Pacemaker (4) Essential hypertension Patient has presented with NSTEMI. We will proceed with coronary angiogram with possible PCI. Risks and benefits of the procedure have been discussed with patient. He understands and wants to proceed. NPO for now Patient will be loaded with aspirin plavix and heparin bolus Patient has not started taking eliquis Thank you for involving us with care of this patient. We will continue to follow. Please call with questions. Providers/Reason For Consult 2 Consulting Physician/Specialty*: Dr. Flores, cardiology Reason for Consult*: Chest pain, NSTEMI Requesting Physician: Dr Troy Primary Care Provider: RYAN Hollins History of Present Illness History of Present Illness Krishna Fulton is a 79 year old male presenting with chest pain and elevated cardiac enzymes. The symptom onset occurred when the patient woke up around 3 AM and was in the bathroom, reporting chest pain. The pain persisted and was described as continuing despite having medication administered by [facility] ([facility] He has a history of atrial fibrillation, but patient has not started taking Eliquis, previously prescribed. An EKG conducted shows a paced rhythm. Baseline troponin 46 with positive delta of 8. There is a consideration to perform an angiogram to diagnose and address potential coronary artery blockage. The procedure was discussed in detail with the patient, including risks and benefits. He agreed to proceed with the procedure. The patient was experiencing chest discomfort at the time of this consultation. Review of Systems 2 General: Reports: 10 or more systems reviewed and unremarkable except in HPI and below Card: Reports: chest pain Medications/Allergies Home Medications Medication Instructions Recorded Confirmed Last Taken Type blood sugar diagnostic (Accu-Chek #100 strips 08/04/24 09/28/24 Unknown Rx Karen Plus test strips) cholecalciferol (vitamin D3) 25 25 mcg PO DAILY #30 caps 08/04/24 09/28/24 Unknown Rx mcg (1,000 unit) capsule dapagliflozin propanediol 10 mg 10 mg PO DAILY 90 days #90 tabs 09/02/24 09/28/24 Unknown Rx tablet (Farxiga) fluticasone propionate 50 2 spray intranasal DAILY PRN nasal 09/02/24 09/28/24 Unknown Rx mcg/actuation nasal congestion 30 days #16 grams spray,suspension (Flonase Allergy Relief) apixaban 2.5 mg tablet (Eliquis) 2.5 mg PO BID #60 tabs 09/07/24 09/28/24 Unknown Rx amlodipine 5 mg tablet 10 mg PO DAILY 09/28/24 09/28/24 Unknown History metoprolol succinate 25 mg 25 mg PO QPM 09/28/24 09/28/24 Unknown History tablet,extended release 24 hr montelukast 10 mg tablet 10 mg PO QPM 09/28/24 09/28/24 Unknown History omeprazole 40 mg capsule,delayed 40 mg PO DAILY 09/28/24 09/28/24 Unknown History release tamsulosin 0.4 mg capsule 0.4 mg PO QPM 09/28/24 09/28/24 Unknown History Allergies Allergy/AdvReac Type Severity Reaction Status Date / Time Sulfa (Sulfonamide Allergy upset Verified 09/07/24 10:12 Antibiotics) stomach PFSH Acute 2 PFSH: Medical History (Updated 09/28/24 @ 09:52 by Marcelino Billy MD) Chronic kidney disease Diabetes mellitus, type II Pharyngitis Left otitis media Cervical pain (neck) Eustachian tube dysfunction Dizziness and giddiness Memory loss, short term Near syncope Enrolled in chronic care management please do not remove from active Prostate cancer screening Sleep apnea Lower respiratory infection Cellulitis Prostate cancer History of radiation therapy Skin inflammation Ear noise/buzzing Otitis media Environmental and seasonal allergies Acute bacterial sinusitis Acute exacerbation of chronic low back pain Chronic shoulder pain Hypoxia Symptomatic bradycardia Pacemaker Penny esophagus Diabetes Elevated PSA Essential hypertension GERD (gastroesophageal reflux disease) Heart block Lung granuloma Mobitz II Obesity Chronic seasonal allergic rhinitis Thyroid nodule Vitamin D deficiency Sinusitis Surgical History Status post appendectomy Status post operation on nasal sinus Family History Mother , at age 65 CAD (coronary artery disease) Cancer Diabetes Lung disease Father , at age 90 Anesthesia complication Dementia Denies family history of Clotting disorder Chronic kidney disease (CKD) Suicide Bleeding disorder Stroke Social History Smoking and tobacco/nicotine status: former use of tobacco/nicotine Alcohol intake: former Substance/Drug Use: never Marital status: Current occupational status: retired Vitals/I&O/Wt Last Vital Signs Temp 98 F 09/28/24 05:50 Pulse 117 H 09/28/24 06:40 Resp 17 09/28/24 06:45 BP 139/87 09/28/24 06:26 Pulse Ox 96 09/28/24 06:40 O2 Del Method Nasal Cannula 09/28/24 06:25 O2 Flow Rate 2 09/28/24 06:30 09/27/24 09/28/24 09/28/24 22:59 06:59 14:59 Intake Total 0 / 0 Balance 0 / 0 Weight last 48 hrs Weight 200 lb Physical Exam 2 Const: COMMON NORMALS: no acute distress and patient oriented x3 GENERAL APPEARANCE: cooperative and comfortable ORIENTATION/CONSCIOUSNESS: Yes awake, Yes oriented to person, Yes oriented to place and Yes oriented to time Chest: COMMONS NORMALS: normal inspection of the chest and normal palpation of entire chest wall CHEST: Yes Symmetrical chest wall rise Resp: COMMON NORMALS: normal respiratory effort, No retractions, No use of accessory muscles and clear to auscultation bilaterally EFFORT & INSPECTION: Yes symmetric chest movement AUSCULTATION: clear to auscultation bilaterally Cardio: COMMON NORMALS: regular rate, regular rhythm, S1 normal heart sound present, S2 normal heart sound present, No gallops present (Cardio), No clicks present (Cardio), No murmurs present (Cardio) and No rub (Cardio) RATE: r egular rate RHYTHM: regular rhythm HEART SOUNDS: S1 normal heart sound present and S2 normal heart sound present PERIPHERAL PULSES: radial pulses present Extremity: COMMON NORMALS: no pedal edema Neuro: COMMON NORMALS: patient oriented x3 and moves all extremities S ENSORIUM/ORIENTATION: Yes oriented to person, Yes oriented to place and Yes oriented to time Data 09/28/24 06:01 09/28/24 06:01 A&P Assessment and plan (1) NSTEMI (non-ST elevated myocardial infarction): Assessment and Plan 79-year-old male with a history of elevated cardiac enzymes presenting with chest pain. The chest pain persistently occurs, indicating potential coronary artery disease. The patient has a paced rhythm on the EKG, necessitating further investigation to confirm coronary blockage. 1. Elevated Cardiac Enzymes Further evaluation with a coronary angiogram is necessary to diagnose any underlying coronary artery disease. Identification of a blockage could be correlated with the elevated enzymes and will potentially guide therapeutic interventions. 2. Chest Pain The patient will undergo an angiogram today to explore potential coronary artery blockages causing the chest pain. If a blockage is identified, a stent may be inserted to restore proper blood flow. Inform the patient about the 2% risk of complications, though the procedure is widely practiced and generally safe. Eliquis wasn't taken as intended. Start monitoring its effects if prescribed. Echocardiogram has been ordered to further evaluate cardiac status and LV function. (2) Atrial fibrillation: Qualifiers: Atrial fibrillation type: persistent (not longstanding) Qualified Code(s): I48.19 - Other persistent atrial fibrillation (3) Pacemaker: (4) Essential hypertension: Plan The patient will undergo an angiogram today to explore potential coronary artery blockages causing the chest pain. If a blockage is identified, a stent may be inserted to restore proper blood flow. Inform the patient about the 2% risk of complications, though the procedure is widely practiced and generally safe. Eliquis wasn't taken as intended. Start monitoring its effects if prescribed. Echocardiogram has been ordered to further evaluate cardiac status and LV function. Consult Attestations 2 Medical Necessity Statement: defer to primary team Coding Level of Care Code Acute Code for [facility] Diagnoses NSTEMI (non-ST elevated myocardial infarction) I21.4 Persistent atrial fibrillation I48.19 Atrial fibrillation type: persistent (not longstanding) Pacemaker Z95.0 Essential hypertension I10
--- NOTE | 2024-09-28 09:47 | P.HP_ITS ---
Providers/Chief Complaint 2 Admitting Physician: Marcelino Billy MD, hospitalist Primary Care Provider: RYAN Hollins Chief Complaint: CP History of Present Illness Krishna Fulton is a 79 year old male who presents with complaints of chest pressure, nausea, diaphoresis that was initiated last night around 1 to 2 AM. found him at 3 AM in the bathroom, trying to throw up, drenched in sweat. Patient reports he has just a little bit of pressure currently. He is a poor historian, his attributes this to significant memory difficulties likely dementia. No diarrhea, blood in stool, recent fever, shortness of breath. Review of Systems 2 General: Reports: 10 or more systems reviewed and unremarkable except in HPI and below Card: Reports: chest pain Resp: Denies: dyspnea GI: Reports: nausea; Denies: abdominal pain, vomiting, hematochezia or melena Medications/Allergies Home Medications Medication Instructions Recorded Confirmed Last Taken Type metoprolol succinate 25 mg 25 mg PO DAILY #90 tabs 11/07/23 09/28/24 Unknown Rx tablet,extended release 24 hr blood sugar diagnostic (Accu-Chek #100 strips 08/04/24 09/28/24 Unknown Rx Karen Plus test strips) cholecalciferol (vitamin D3) 25 25 mcg PO DAILY #30 caps 08/04/24 09/28/24 Unknown Rx mcg (1,000 unit) capsule dapagliflozin propanediol 10 mg 10 mg PO DAILY 90 days #90 tabs 09/02/24 09/28/24 Unknown Rx tablet (Farxiga) fluticasone propionate 50 2 spray intranasal DAILY PRN nasal 09/02/24 09/28/24 Unknown Rx mcg/actuation nasal congestion 30 days #16 grams spray,suspension (Flonase Allergy Relief) apixaban 2.5 mg tablet (Eliquis) 2.5 mg PO BID #60 tabs 09/07/24 09/28/24 Unknown Rx amlodipine 5 mg tablet 10 mg PO DAILY 09/28/24 09/28/24 Unknown History montelukast 10 mg tablet 10 mg PO DAILY 09/28/24 09/28/24 Unknown History omeprazole 40 mg capsule,delayed 40 mg PO DAILY 09/28/24 09/28/24 Unknown History release tamsulosin 0.4 mg capsule 0.4 mg PO DAILY 09/28/24 09/28/24 Unknown History Allergies Allergy/AdvReac Type Severity Reaction Status Date / Time Sulfa (Sulfonamide Allergy upset Verified 09/07/24 10:12 Antibiotics) stomach PFSH Acute 2 PFSH: Medical History (Updated 09/28/24 @ 09:52 by Marcelino Billy MD) Chronic kidney disease Diabetes mellitus, type II Pharyngitis Left otitis media Cervical pain (neck) Eustachian tube dysfunction Dizziness and giddiness Memory loss, short term Near syncope Enrolled in chronic care management please do not remove from active Prostate cancer screening Sleep apnea Lower respiratory infection Cellulitis Prostate cancer History of radiation therapy Skin inflammation Ear noise/buzzing Otitis media Environmental and seasonal allergies Acute bacterial sinusitis Acute exacerbation of chronic low back pain Chronic shoulder pain Hypoxia Symptomatic bradycardia Pacemaker Penny esophagus Diabetes Elevated PSA Essential hypertension GERD (gastroesophageal reflux disease) Heart block Lung granuloma Mobitz II Obesity Chronic seasonal allergic rhinitis Thyroid nodule Vitamin D deficiency Sinusitis Surgical History Status post appendectomy Status post operation on nasal sinus Family History Mother , at age 65 CAD (coronary artery disease) Cancer Diabetes Lung disease Father , at age 90 Anesthesia complication Dementia Denies family history of Clotting disorder Chronic kidney disease (CKD) Suicide Bleeding disorder Stroke Social History Smoking and tobacco/nicotine status: former use of tobacco/nicotine Alcohol intake: former Substance/Drug Use: never Marital status: Current occupational status: retired Vitals/I&O/Wt Last Vital Signs Temp 98 F 09/28/24 05:50 Pulse 95 09/28/24 09:41 Resp 16 09/28/24 09:41 BP 143/93 09/28/24 09:41 Pulse Ox 94 09/28/24 09:41 O2 Del Method Room Air 09/28/24 09:41 O2 Flow Rate 2 09/28/24 06:30 09/27/24 09/28/24 09/28/24 22:59 06:59 14:59 Intake Total 0 / 0 Balance 0 / 0 Weight last 48 hrs Weight 90.718 kg Physical Exam 2 Narrative: General exam is a white male, reporting mild chest discomfort, in no obvious distress HEENT: Atraumatic normocephalic. Oropharynx clear Neck is supple no lymphadenopathy thyromegaly Cardiovascular regular rate and rhythm, no murmur Lungs clear Abdomen is soft nontender positive bowel sounds exams deferred Extremities no cyanosis clubbing or edema, cap refill brisk Skin no rash Neuro no obvious focal deficits. Data 09/28/24 06:01 09/28/24 06:01 Other Labs: LFTs are normal Troponin 46 and repeat 54 Albumin and calcium are normal Chest x-ray per my read demonstrates atherosclerotic disease, cardiomegaly, pacemaker right chest, no infiltrate EKG per my read demonstrates a ventricularly paced rhythm, rate 92 A&P Assessment and plan (1) NSTEMI (non-ST elevated myocardial infarction): Concern of non-ST elevation myocardial infarction Given dose of heparin prior to going to angiogram lab Aspirin given Continue patient's home beta-louie Patient reported intolerance to previous statin. Will defer to cardiology. (2) Atrial fibrillation: Patient with history of atrial fibrillation He has not yet started Eliquis according to Qualifiers: Atrial fibrillation type: persistent (not longstanding) Qualified Code(s): I48.19 - Other persistent atrial fibrillation (3) Diabetes: Sliding scale insulin Consistent carb diet Qualifiers: Diabetes mellitus complication status: without complication Diabetes mellitus exterminator termite insulin use: without exterminator termite use Diabetes mellitus type: t ype 2 Qualified Code(s): E11.9 - Type 2 diabetes mellitus without complications (4) Chronic kidney disease: Patient has evidence of chronic kidney disease Avoid renal toxic medication Plan Other medical problems as outlined in past medical history Full code currently Going directly to angiogram suite, further anticoagulation will be determined following this. SCDs will be used. Initial dose of heparin was given as well as aspirin Attestations 2 Medical Necessity Statement*: At this point, in this patient with chest discomfort with likely non-ST elevation myocardial infarction going directly to angiogram it is not likely he will need greater than 2 midnights. Observation. Diagnoses NSTEMI (non-ST elevated myocardial infarction) I21.4 Persistent atrial fibrillation I48.19 Atrial fibrillation type: persistent (not longstanding) Type 2 diabetes mellitus without complication, without long-term current use of insulin E11.9 Diabetes mellitus complication status: without complication Diabetes mellitus exterminator termite insulin use: without exterminator termite use Diabetes mellitus type: type 2 Chronic kidney disease N18.9 Time Spent (min) 54
--- NOTE | 2024-09-28 09:50 | USCV_ITS ---
Krishna Fulton Age: 79 Gender: M : 1945 Exam Date: 09/28/2024 15:11 Ordering Phys: Marcelino Billy MD Technologist: CT Exam Location: [facility] – [place] Indication: BP: 134 / 82 HR: 90 Rhythm: Sinus Technical Quality: Adequate MEASUREMENTS (Male / Female) Normal Values 2D ECHO LV Ejection Fraction MOD 4C 43.8 % LV Ejection Fraction MOD 2C 49.7 % LV Ejection Fraction 2C AL 50.3 % RA Systolic Volume 4C AL 51.7 ml RA Systolic Volume 4C MOD 50.2 ml LA Sys Volume AL 38.8 cm cubed LA Sys Volume Index AL 17.7 cm cubed/m squared M-MODE LA Ao Ratio MM 1.4 AV Cusp Separation MM 2.0 cm DOPPLER AV Peak Velocity 115.0 cm/s LVOT Peak Velocity 85.0 cm/s MV Peak Velocity 115.0 cm/s MV Area PHT 5.8 cm squared Mitral E to A Ratio 59.0 TR Peak Velocity 230.5 cm/s TR Peak Gradient 21.3 mmHg TR Mean Velocity 127.0 cm/s TR Mean Gradient 8.3 mmHg TR Velocity Time Integral 55.0 cm TV Peak E Velocity 83.0 cm/s PV Peak Velocity 106.5 cm/s FINDINGS Left Ventricle Normal left ventricular cavity size. Mildly decreased left ventricular systolic function. Left ventricular ejection fraction is estimated at 50 %. Right Ventricle The right ventricle is normal in size and function. Right Atrium The right atrium is normal in size. Left Atrium The left atrium is normal in size. Mitral Valve Structurally normal mitral valve without significant stenosis or prolapse. There is mild mitral regurgitation. Aortic Valve Structurally normal aortic valve without significant sclerosis or stenosis. There is no aortic regurgitation. Tricuspid Valve Structurally normal tricuspid valve without significant stenosis mild regurgitation. Pulmonary artery systolic pressure is normal. Pulmonic Valve Structurally normal pulmonic valve without significant stenosis. There is no pulmonic regurgitation. Pericardium Normal pericardium without effusion. Aorta Normal ascending aorta dimension. IVC The inferior vena cava appears normal. CONCLUSIONS Normal left ventricular cavity size. Mildly decreased left ventricular systolic function. Left ventricular ejection fraction is estimated at 50 %. Structurally normal mitral valve without significant stenosis or prolapse. There is mild mitral regurgitation. Pulmonary artery systolic pressure is within normal limits. Right atrial pressure is around 5 mm of mercury. Araujo Aguirre MD (Electronically Signed) Final Date: 28 September 2024 18:09 S
--- NOTE | 2024-09-28 09:51 | W.PM.OPSUD ---
Surgery/Procedure H&P Update DATE OF PROCEDURE: September 28, 2024 DATE H&P PERFORMED: 09/28/24 H&P UPDATE INFORMATION: I have reviewed H&P completed within last 30 days, I have examined patient prior to procedure and No changes to prior documentation PREOP DIAGNOSIS: NSTEMI PRIMARY INDICATION FOR PROCEDURE: NSTEMI PLANNED PROCEDURE: Left heart cath with possible percutaneous coronary intervention PATIENT REASSESSED PRIOR TO SEDATION, WITH NO CHANGE NOTED: Yes PHYSICAL EXAM: alert, oriented x 3, clear to auscultation bilaterally and regular rate & rhythm AIRWAY EVAL/ANESTHESIA PLAN: normal airway, ASA III, Local Anesthesia, Risks, benefits & alternatives of sedation and/or procedure discussed and Patient agrees to continue as planned ADDITIONAL INFORMATION: Moderate sedation
--- NOTE | 2024-09-28 11:07 | PM.PROC ---
Procedure Note: Date of procedure: 09/28/24 Pre-procedure diagnosis: NSTEMI Post-procedure diagnosis: other (Severe proximal LAD stenosis s/p PCI with 1 stent) Procedure: Left heart cath with PCI. Left main artery is patent. Proximal LAD has 60 to 70% stenosis. iFR was performed that was significantly abnormal. Patient underwent successful revascularization with 1 stent. Left circumflex artery has ostial mild to moderate disease. RCA is chronic total occlusion with collaterals from the left system. Dual antiplatelet therapy with aspirin and Plavix. At time of discharge she will be discharged home on Eliquis and Plavix. High intensity statin therapy. Transfer to the floor. Performing Provider: Dann Flores Estimated blood loss (mL): 10 Complications: None Condition: stable Disposition: floor Coding Level of Care Code Acute Code for [facility]
[2024-09-28] MEDS: sodium chloride 0.9% 1,000 ML 100 ML IV (11:55)
--- NOTE | 2024-09-28 12:22 | PC.NURSE ---
Swelling/hematoma noted Noted swelling above right radial access site.pressure held for 10 mins manually. Applied 2nd TR Band with 15 mls of air. Noted soft hematoma,swelling on top of the right hand,pressure held for 5 mins and wrapped with a coband for some pressure. Will keep monitoring neurovascular,any increase swelling and hematoma. at bedside and pt educated on activity restrictions to right wrist and right leg. Call light within reach.
--- NOTE | 2024-09-28 12:49 | DCPLANNER ---
aggrastat drip stopped notified Dr Flores via phone that pt's swelling and bruising has increased on right arm and right thigh area. Telephone order to stopped aggrastat drip and monitor for any increased swelling or bruising after med has stopped.
[2024-09-28 13:28] LABS: Troponin 5 6HR 113.1 ng/L (0-15); Troponin 5 6HR Delta 67.1 ng/L (0-12)
--- NOTE | 2024-09-28 13:34 | PC.NURSE ---
1130 received from culture media laboratory assistant pt is alert,forgetful per at bedside. Pt is restless and moving his legs frequently. reminded pt and to not let his right arm and leg to move frequently due to aggrastat drip running and will be at risk for bleeding and hematoma. will monitor while on drip.
--- NOTE | 2024-09-28 14:29 | ECG_ITS ---
[facility]: [facility]24[facility]28 Pat Name: Krishna Fulton Department: Room: 112 Gender: Male Credit Card Specialist: : 1945 Requested By: Duncan Stokes Order Number: [id number] Anahi MD: Jaiden Maria M.D. Measurements Intervals [place] Rate: 92 P: 85 LA: 194 QRS: -77 QRSD: 193 T: 86 QT: 423 QTc: 524 Interpretive Statements ELECTRONIC VENTRICULAR PACEMAKER ABNORMAL RHYTHM ECG Compared to ECG 09/28/2024 08:33:46 No significant changes Electronically Signed On 09-28-2024 17:22:37 CARDIAC CATHETERIZATION TECHNOLOGIST by Jaiden Maria M.D. [email or web address]
[2024-09-28 15:08] LABS: Partial Thromboplastin Time 72.7 SECONDS (23.9-36.7)
--- NOTE | 2024-09-28 16:30 | PC.NURSE ---
Physician at bedside Dr Flores attempted to use mynx closure device to remove the 6 F right femoral sheath,however it was unsuccessful when advanced. Manual pressure held by this nurse for 20 mins. hemostasis achieved. 25 mcg fentanyl given as verbal order. pedal pulses palpable.
[2024-09-28] MEDS: fentaNYL 50 mcg/mL INJ 2mL 25 MCG IVP (17:15)
--- NOTE | 2024-09-28 19:53 | PC.NURSE ---
applied cold compress to right groin bruise. right groin site is soft, no other increase swelling, hematoma or bleeding post right sheath removal.
[2024-09-28] MEDS: atorvastatin 40 mg Tablet PO (20:51)
[2024-09-29] VITALS (62 sets, daily range): BP systolic 101–147; BP diastolic 71–88; PULSE 75–120; RESP 15–31; TEMP 36.8–37; O2SAT 90–96; BMI 30.4
[2024-09-29 03:27] LABS: Basophils % 0.3 %; Eosinophils % 0.2 %; Hematocrit 36.5 % (37-53); Lymphocytes # 1.6 10^3/uL (0.8-4.8); Lymphocytes % 14.4 %; Mean Corpuscular Volume 91.3 fl (82-101); Mean Platelet Volume 10.2 fL (7.4-10.4); Monocytes # 0.9 10^3/uL (0.2-0.9); Monocytes % 8.1 %; Neutrophils # 8.65 10^3/uL (1.8-7.7); Neutrophils % 76.6 %; Nucleated Red Blood Cells % 0 %; Platelet Count 185 10^3/cmm (157-399); Red Cell Distribution Width 13.6 % (12.1-15.1); White Blood Count 11.29 10^3/uL (3.29-11.43)
[2024-09-29 03:57] LABS: Anion Gap 19.6 (5-19); Blood Urea Nitrogen 18 mg/dL (8-23); Calcium 9.1 mg/dL (8.5-10.5); Carbon Dioxide 21 mmol/L (22-29); Chloride 104 mmol/L (98-107); Creatinine Clr Calc Pharmacy 58.5812; Glucose 159 mg/dL (65-115); Osmolality Calculated 295 mOsm/kg (285-295); Potassium 4.6 mmol/L (3.5-5.1); Sodium 140 mmol/L (136-145)
--- NOTE | 2024-09-29 08:17 | P.DS_ITS ---
Discharge Providers Date of Admission: 09/28/24 11:23 Date of Discharge: September 29, 2024 Attending Provider at Admission: Dann Flores M.D Attending Provider at Discharge: Marcelino Billy MD Primary Care Provider: RYAN Hollins Diagnoses at Discharge Discharge Diagnosis (1) NSTEMI (non-ST elevated myocardial infarction): Status: Acute (2) Atrial fibrillation: Status: Acute Qualifiers: Atrial fibrillation type: persistent (not longstanding) Qualified Code(s): I48.19 - Other persistent atrial fibrillation (3) Pacemaker: Status: Chronic (4) Essential hypertension: Status: Chronic Reason for Visit Reason for Visit: CP Hospital Course Hospital Course Patient is an 79-year-old white male presenting to the hospital with chest discomfort. Troponin was positive. EKG was not definitive. He had ongoing pain and was taken to the angiogram suite. He had a total occlusion, Chronic of the RCA with collaterals. Left main patent, LAD significant stenosis. He underwent revascularization with drug-eluting stent. He did well postprocedure. No chest discomfort the next day, ambulating well, normal creatinine. It was thought he could discharge to home. Multiple changes in medication, for cardiac health were made. Emphasis was discussed regarding importance of Plavix, and to call if any bleeding should occur. Patient's was present during discharge instructions, and patient and agreed with the plan. Cardiology to evaluate prior to discharge. Aspirin not prescribed on discharge as patient will be receiving Plavix and apixaban. Cardiology to evaluate this as well to make sure they are in agreement prior to discharge. Concern with bleeding risk of triple therapy in this 79-year-old with history of some chronic renal disease. Physical Exam Narrative: General Exam no distress Neck is supple Cardiovascular regular rate and rhythm Lungs clear Abdomen soft Extremities no cyanosis clubbing or edema, bruising noted right groin but no thrill, bruit, mass. Distal pulses intact. Right wrist with dressing, good perfusion distally and normal function. Discharge Data Studies Completed and Pending Completed Studies During Hospitalization Category Date Time Status XR chest 1V portable [id number] Stat Exams 09/28/24 05:58 Completed CV. 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 Laboratory Results WBC 11.29 10^3/uL (3.29-11.43) 09/29/24 03:10 RBC 4.00 10^6/uL (3.85-5.65) 09/29/24 03:10 Hgb 12.40 g/dL (11.27-16.99) 09/29/24 03:10 Hct 36.5 % (37-53) L 09/29/24 03:10 MCV 91.3 fl (82-101) 09/29/24 03:10 MCH 31.0 pg (27-33) 09/29/24 03:10 MCHC 34.0 g/dL (30-55) 09/29/24 03:10 RDW 13.6 % (12.1-15.1) 09/29/24 03:10 Plt Count 185 10^3/cmm (157-399) 09/29/24 03:10 MPV 10.2 fL (7.4-10.4) 09/29/24 03:10 Neut % (Auto) 76.6 % 09/29/24 03:10 Lymph % (Auto) 14.4 % 09/29/24 03:10 Millard % (Auto) 8.1 % 09/29/24 03:10 Eos % (Auto) 0.2 % 09/29/24 03:10 Baso % (Auto) 0.3 % 09/29/24 03:10 Neut # (Auto) 8.65 10^3/uL (1.8-7.7) H 09/29/24 03:10 Lymph # (Auto) 1.6 10^3/uL (0.8-4.8) 09/29/24 03:10 Millard # (Auto) 0.9 10^3/uL (0.2-0.9) 09/29/24 03:10 Eos # (Auto) 0.0 10^3/uL (0.0-0.8) 09/29/24 03:10 Baso # (Auto) 0.0 10^3/uL (0.0-0.1) 09/29/24 03:10 Nucleated RBC % (auto) 0 % 09/29/24 03:10 Nucleated RBCs # 0.0 /100WBC 09/29/24 03:10 APTT 72.7 SECONDS (23.9-36.7) H 09/28/24 14:19 Sodium 140 mmol/L (136-145) 09/29/24 03:10 Potassium 4.6 mmol/L (3.5-5.1) 09/29/24 03:10 Chloride 104 mmol/L (98-107) 09/29/24 03:10 Carbon Dioxide 21 mmol/L (22-29) L 09/29/24 03:10 Anion Gap 19.6 (5-19) H 09/29/24 03:10 BUN 18 mg/dL (8-23) 09/29/24 03:10 Creatinine 1.1 mg/dL (0.7-1.2) 09/29/24 03:10 GFR Calculation Not Reportable 09/29/24 03:10 Glucose 159 mg/dL (65-115) H 09/29/24 03:10 Calculated Osmolality 295 mOsm/kg (285-295) 09/29/24 03:10 Calcium 9.1 mg/dL (8.5-10.5) 09/29/24 03:10 Total Bilirubin 0.3 mg/dL (0.15-1.2) 09/28/24 06:01 AST 23 U/L (0-40) 09/28/24 06:01 ALT 22 U/L (0-41) 09/28/24 06:01 Alkaline Phosphatase 104 U/L (40-130) 09/28/24 06:01 Troponin T Baseline 46 ng/L (0-15) H 09/28/24 06:01 Troponin T 120 Minute 54.07 ng/L (0-15) H 09/28/24 08:05 Delta Troponin T 8.07 ABS# (0-10) 09/28/24 08:05 Troponin T Hi Sens 6Hr 113.1 ng/L (0-15) H 09/28/24 12:13 Troponin T Hi Sens 6Hr Delta 67.1 ng/L (0-12) H* 09/28/24 12:13 Total Protein 7.1 g/dL (6.6-8.7) 09/28/24 06:01 Albumin 4.1 g/dL (3.5-5.2) 09/28/24 06:01 Globulin 3.0 g/dL (1.3-4.6) 09/28/24 06:01 TSH 3.30 uIU/mL (0.27-4.20) 09/28/24 06:01 Vitals Last Vital Signs Temp 98.3 F 09/29/24 08:09 Pulse 87 09/29/24 08:09 Resp 23 H 09/29/24 08:09 BP 130/85 09/29/24 08:09 Pulse Ox 94 09/29/24 08:09 O2 Del Method Room Air 09/29/24 08:09 O2 Flow Rate 2 09/28/24 06:30 Discharge Plan Discharge Patient Disposition: Home Condition: Stable Prescriptions: New clopidogrel 75 mg Tablet 75 mg PO DAILY Qty: 30 11RF nitroglycerin 0.4 mg Tablet, Sublingual 0.4 mg sublingual Q5M PRN (Reason: Chest Pain) Qty: 20 0RF losartan 50 mg Tablet 25 mg PO DAILY Qty: 15 0RF Continued Eliquis 2.5 mg tablet 2.5 mg PO BID Qty: 60 5RF cholecalciferol (vitamin D3) 25 mcg (1,000 unit) capsule 25 mcg PO DAILY Qty: 30 0RF (DME) Accu-Chek Karen Plus test strp Strip See Rx Instructions .ROUTE .COMPLEX Qty: 100 1RF Dose Instruction: USE TO CHECK BLOOD SUGARS ONCE DAILY DIRECTED Rx Instructions: USE TO CHECK BLOOD SUGARS ONCE DAILY DIRECTED dapagliflozin propanediol [Farxiga] 10 mg tablet 10 mg PO DAILY 90 Days Qty: 90 1RF fluticasone propionate [Flonase Allergy Relief] 50 mcg/actuation spray,suspension 2 spray intranasal DAILY PRN (Reason: nasal congestion) 30 Days Qty: 16 0RF Rx Instructions: administer into each nostril omeprazole 40 mg capsule,delayed release(DR/EC) 40 mg PO DAILY Rx Instructions: TAKE 1 CAPSULE BY MOUTH EVERY DAY tamsulosin 0.4 mg capsule 0.4 mg PO QPM Rx Instructions: TAKE 1 CAPSULE BY MOUTH DAILY montelukast 10 mg tablet 10 mg PO QPM Rx Instructions: TAKE 1 TABLET BY MOUTH EVERY DAY Changed metoprolol succinate 25 mg tablet extended release 24 hr 25 mg PO QAM Qty: 30 0RF Discontinued amlodipine 5 mg tablet 10 mg PO DAILY Discharge Orders: Discharge Order (Routine); Ordered 09/29/24 Ordered By: Marcelino Billy Referrals: MAYRA Rodriguez FNP [Primary Care Provider] - 4-7 days Dann Flores M.D [Physician] - 7-10 days (per cardiology protocol, ok to see OUTPLACEMENT CONSULTANT) Discharge Diet: Cardiac and Diabetic Discharge Activity: Increase activity as tolerated Patient Instructions: Opioid Safety Activity Restrictions/Additional Instructions: Precautions post angiogram, wrist and groin Take all medicine as prescribed Notify cardiology, primary care provider for any bleeding Follow-up as instructed Return for any concerns If nitroglycerin sublingual is ever taken, be seated or laying down when taking. Discharge Attestations Time Spent in Discharge Care*: greater than 30 min Status at Discharge: Cognitive status at discharge: cognitively intact , Behavioral status at discharge: cooperative , Quality Metrics Clinical Quality Measures [ Acute Myocardial Infaction { Clinical Trial Participant: No; Contraindication to aspirin: Other (not indicated); Contraindication to statin: None; Statin prescribed; Contraindication to PCI: None; PCI performed;}] Coding Level of Care Code Acute Code for [facility] Fwd Diagnoses NSTEMI (non-ST elevated myocardial infarction) I21.4 Persistent atrial fibrillation I48.19 Atrial fibrillation type: persistent (not longstanding) Pacemaker Z95.0 Essential hypertension I10
--- NOTE | 2024-09-29 08:29 | P.PN_ITS ---
<Statement entered by Dann Flores M.D - 09/29/24 21:40> Patient was evaluated and cared for in conjunction with an advanced practice practitioner. I personally examined the patient and reviewed the chart and all pertinent data including imaging, telemetry, and laboratory results. I discussed the patient in detail with the advanced practice practitioner. Please see their note for complete progress note, results and agreed upon plan of care for the patient. Patient feeling well. no chest pain. has bruising in right groin area GENERAL: Patient is alert and oriented HEART: Regular S1 and S2 LUNGS: Clear to auscultation bilaterally EXTREMITIES: Lower extremities with 1 + edema ASSESSMENT AND PLAN (1) Coronary artery disease: (2) Essential hypertension: (3) Pacemaker: (4) Atrial fibrillation: (5) NSTEMI (non-ST elevated myocardial infarction) Patient had PCI of proximal LAD yesterday. Continue plavix 75mg daily. We will start eliquis 5 mg BID Thank you for involving us care of this patient. please call with questions. Subjective 2 Subjective: He is feeling well this morning, sitting on the side of the bed for breakfast. No chest pain, shortness of breath. He has been ambulating this morning without difficulty. Bruising present at the radial and femoral cath sites, no significant hematoma. Vitals/I&O/Wt Last Vital Signs Temp 98.3 F 09/29/24 08:09 Pulse 87 09/29/24 08:09 Resp 23 H 09/29/24 08:09 BP 130/85 09/29/24 08:09 Pulse Ox 94 09/29/24 08:09 O2 Del Method Room Air 09/29/24 08:09 O2 Flow Rate 2 09/28/24 06:30 09/28/24 09/29/24 09/29/24 22:59 06:59 14:59 Intake Total 120 / 120 Output Total 200 / 1600 700 / 1600 Balance -80 / -1480 -700 / -1480 Weight last 48 hrs Weight 200 lb Weight 200 lb Physical Exam 2 Const: COMMON NORMALS: no acute distress and patient oriented x3 GENERAL APPEARANCE: cooperative ORIENTATION/CONSCIOUSNESS: Yes awake, Yes oriented to person, Yes oriented to place and Yes oriented to time Chest: COMMONS NORMALS: normal inspection of the chest and normal palpation of entire chest wall CHEST: Yes Symmetrical chest wall rise Resp: COMMON NORMALS: normal respiratory effort, No retractions, No use of accessory muscles and clear to auscultation bilaterally AUSCULTATION: clear to auscultation bilaterally Cardio: COMMON NORMALS: regular rate, regular rhythm, S1 normal heart sound present, S2 normal heart sound present, No gallops present (Cardio), No clicks present (Cardio), No murmurs present (Cardio) and No rub (Cardio) RATE: r egular rate RHYTHM: regular rhythm HEART SOUNDS: S1 normal heart sound present and S2 normal heart sound present PERIPHERAL PULSES: radial pulses present positive right 2+ and femoral pulses present positive right 2+ Neuro: COMMON NORMALS: patient oriented x3 and moves all extremities S ENSORIUM/ORIENTATION: Yes oriented to person, Yes oriented to place and Yes oriented to time Skin: WOUNDS: Yes surgical site (no hematoma palpable) Details: no odor Data 09/29/24 03:10 09/29/24 03:10 A&P Assessment and plan (1) Coronary artery disease: Qualifiers: Coronary Disease-Associated Artery/Lesion type: lumbee artery [place] vs. 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 No recurrence of chest pain. The cath sites are bruised but no significant hematoma present. Hemoglobin is stable, 12.4 today. He is ready for discharge home with follow up in the cardiology clinic in 7-10 days. No lifting over 5 pounds for 2 days. Blood pressure is well controlled. Agree with discontinuing amlodipine in favor of losartan 25mg daily given LVEF 50%. Paroxysmal atrial fibrillation, ventricular rate well controlled and he is ventricular paced nearly 100%. Continue metoprolol succinate 25mg daily. Will plan for discharge home today. Will adjust dose of Eliquis to 5mg BID, renal function is normal. Continue Plavix for 1 year. Attestations 2 Medical Necessity Statement*: discharge home today Coding Level of Care Code Acute Code for [facility] Fwd Diagnoses Coronary artery disease involving lumbee coronary artery of lumbee heart without angina pectoris I25.10 Coronary Disease-Associated Artery/Lesion type: lumbee artery [place] vs. transplanted heart: lumbee heart Associated angina: without angina Essential hypertension I10 Pacemaker Z95.0 Persistent atrial fibrillation I48.19 Atrial fibrillation type: persistent (not longstanding) NSTEMI (non-ST elevated myocardial infarction) I21.4
[2024-09-29] MEDS: aspirin 81 mg EC Tablet PO (08:36)
[2024-09-29] MEDS: clopidogrel 75 mg Tablet PO (08:37)
[2024-09-29] MEDS: metoprolol succinate ER (24 HR) 25 mg Tablet PO (08:37)
--- NOTE | 2024-09-29 09:07 | PC.CHAP ---
Pastoral Care Encounter/Spiritual Assessment Type of Contact [] Declined clinical social work therapist visit [] Patient/Family/Request visit [] Outpatient visit [] Follow-up visit [] Physician referral [] Code/Alert [x] Routine visit [] Staff referral [] Actively dying [] Patient sleeping [x] Family support [] [] Out of room [] Palliative care [] [] Receiving care in room [] Pre-surgical visit [] Trauma [] Long length of stay [] ICU visit [] Other: Relational/Emotional Strength [x] Patient feels connected with others/family/visitors/staff [] Distress [] Loneliness/isolation [] Abandonment Spirituality of Patient [x] Person of [place] [] Attends Sabianism of their [place] [x] Believes in Prayer [] Reads Bible or Taoism materials [] There are Spiritual issues to be addressed Topographical Surveyor Interventions [x] Prayer [x] Active listening [] Non-anxious presence [x] Spiritual/emotional support [] Crisis/trauma care [] Spiritual counseling [] Bereavement support [] Provided bereavement packet [] Provided Bible/devotional materials [] Provided toy/stuffed animal, coloring book to patient or family member [] Provided Communion [] Anointing/[place] [] Salvation [x] Completed spiritual assessment [] Other: Impact on Illness or Injury [] Angry [] Fearful [] Anxious [] Often cries [] Exhaustion [] Unable to work [] Unable to attend adventist [] Unable to walk/stand [] Unable to read [] Unable to drive [] Unable to eat/drink [] Unable to sleep [] Unable to be with family [] Patient intubated [] Other: Summary Time spent with patient 5 min
[2024-09-29] MEDS: losartan 50 mg Tablet 25 MG PO (09:32)
--- NOTE | 2024-09-29 11:56 | PC.NURSE ---
Physician notification Called Dr Flores on a clarification about pt's Eliquis. Telephone order received to start Eliquis 5 mg Twice a day to start tomorrow with plavix. Informed Sabi and instruction written on his discharge paper regarding the dose and when to start.
== END 2024-09-29 12:10 | disposition home or self-care (01) ==
LOC: ER 06:49 → CCL 11:07 → CSU 11:23
PROVIDERS: Emergency Medicine; Admitting Provider Internal Medicine; Emergency Provider Family Medicine; PCP Nurse Practitioner Family; Visit Provider Internal Medicine
DX: I21.4 Non-ST elevation (NSTEMI) myocardial infarction (principal); I48.19 Other persistent atrial fibrillation; Z95.0 Presence of cardiac pacemaker; E11.22 Type 2 diabetes mellitus with diabetic chronic kidney disease; I12.9 Hypertensive chronic kidney disease with stage 1 through stage 4 chronic kidney disease, or unspecified chronic kidney disease; N18.9 Chronic kidney disease, unspecified; Z85.46 Personal history of malignant neoplasm of prostate; I10 Essential (primary) hypertension; E66.9 Obesity, unspecified; Z68.30 Body mass index [BMI] 30.0-30.9, adult; Z87.891 Personal history of nicotine dependence; I65.21 Occlusion and stenosis of right carotid artery
CPT/HCPCS: 36415; 71045; 80048; 80053; 84443; 84484; 85025; 85347; 85730; 93005; 93306; 93454; 93571; 96361; 96374; 96375; 96376; 99152; 99153; 99285; C1725; C1769; C1874; C1887; C1894; C9600; G0378; J1644; J2250; J3010; J3490; J7030; Q9967

== ENCOUNTER → 2024-10-08 13:27 | Outpatient (BNVA) | payer MEDICARE, OTHER, SELFPAY | PROVIDERS: PCP Nurse Practitioner Family; Visit Provider Nurse Practitioner Family | DX: I25.10 Atherosclerotic heart disease of native coronary artery without angina pectoris (principal); I10 Essential (primary) hypertension; Z95.0 Presence of cardiac pacemaker; E78.2 Mixed hyperlipidemia; I48.19 Other persistent atrial fibrillation; I25.2 Old myocardial infarction; Z87.891 Personal history of nicotine dependence; Z79.01 Long term (current) use of anticoagulants | CPT/HCPCS: 36415; 80053; 85025; 99213 ==

== ENCOUNTER → 2024-10-21 11:06 | Outpatient (BNVA) | payer MEDICARE, OTHER, SELFPAY | PROVIDERS: PCP Nurse Practitioner Family; Visit Provider Nurse Practitioner Family | DX: I48.19 Other persistent atrial fibrillation (principal) | CPT/HCPCS: 85025 ==

== ENCOUNTER → 2025-01-01 08:57 | Outpatient (BNVA) | payer MEDICARE, OTHER, SELFPAY | PROVIDERS: PCP Nurse Practitioner Family; Visit Provider Nurse Practitioner Family | DX: L57.8 Other skin changes due to chronic exposure to nonionizing radiation (principal); X32.XXXA Exposure to sunlight, initial encounter; L81.4 Other melanin hyperpigmentation; L91.8 Other hypertrophic disorders of the skin; L73.8 Other specified follicular disorders; L82.1 Other seborrheic keratosis; L82.0 Inflamed seborrheic keratosis; R20.9 Unspecified disturbances of skin sensation; R20.8 Other disturbances of skin sensation; R23.8 Other skin changes; L53.8 Other specified erythematous conditions; L57.0 Actinic keratosis | CPT/HCPCS: 17000; 17110; 99203 ==

== ENCOUNTER → 2025-01-13 15:31 | Outpatient (BNVA) | payer MEDICARE, OTHER, SELFPAY | PROVIDERS: PCP Nurse Practitioner Family; Visit Provider Internal Medicine | DX: I48.19 Other persistent atrial fibrillation (principal); Z79.01 Long term (current) use of anticoagulants; I12.9 Hypertensive chronic kidney disease with stage 1 through stage 4 chronic kidney disease, or unspecified chronic kidney disease; N18.9 Chronic kidney disease, unspecified; I25.10 Atherosclerotic heart disease of native coronary artery without angina pectoris; E78.2 Mixed hyperlipidemia; E11.9 Type 2 diabetes mellitus without complications; I25.2 Old myocardial infarction; Z95.0 Presence of cardiac pacemaker; Z95.5 Presence of coronary angioplasty implant and graft; Z87.891 Personal history of nicotine dependence | CPT/HCPCS: 99214 ==

== ENCOUNTER 2025-02-21 05:00 | Outpatient (RCR) | payer MEDICARE, OTHER, SELFPAY | END 2025-03-22 23:59 | disposition home or self-care (01) | LOC: WPT 05:00 | PROVIDERS: Visit Provider Nurse Practitioner Family | DX: M54.50 Low back pain, unspecified (principal); G89.29 Other chronic pain | CPT/HCPCS: 97110; 97112; 97161; 97530 ==

== ENCOUNTER → 2025-02-23 10:16 | Outpatient (BNVA) | payer MEDICARE, OTHER, SELFPAY | PROVIDERS: PCP Nurse Practitioner Family; Visit Provider Nurse Practitioner Family | DX: I10 Essential (primary) hypertension (principal); E55.9 Vitamin D deficiency, unspecified; E78.2 Mixed hyperlipidemia; E11.9 Type 2 diabetes mellitus without complications; R97.20 Elevated prostate specific antigen [PSA]; R53.83 Other fatigue; D64.9 Anemia, unspecified | CPT/HCPCS: 80053; 80061; 81003; 82306; 82728; 82746; 83036; 83550; 83735; 84153; 84443; 85025 ==

== ENCOUNTER → 2025-02-24 10:12 | Outpatient (BNVA) | payer MEDICARE, OTHER, SELFPAY | PROVIDERS: PCP Nurse Practitioner Family; Visit Provider Internal Medicine | DX: Z45.018 Encounter for adjustment and management of other part of cardiac pacemaker (principal) | CPT/HCPCS: 93296 ==

== ENCOUNTER 2025-03-02 08:58 | Outpatient (CLI) | payer MEDICARE, OTHER, SELFPAY ==
--- NOTE | 2025-03-02 09:01 | XRR_ITS ---
PROCEDURE INFORMATION: Exam: XR Lumbosacral Spine Exam date and time: 03/02/2025 9:08 AM Age: 80 years old Clinical indication: Low back pain; Lower back pain x one year. Pain gets worse w/ activities. ; Additional info: M51.369 - other intervertebral disc degeneration, lumbar . . . TECHNIQUE: Imaging protocol: Radiologic exam of the lumbosacral spine. Views: 6 or more views. Including flexion and extension views. COMPARISON: No relevant prior studies available. FINDINGS: Bones/joints: Minimal anterolisthesis of L4 on L5 with flexion. Vertebral body heights are preserved. Mild multilevel degenerative disc disease throughout the lumbar spine most prominent at L3-L4. Soft tissues: Unremarkable. XR/XR lumbar spine 6V w f/e [id number] IMPRESSION: Degenerative changes of the lumbar spine.
== END 2025-03-02 08:59 | disposition home or self-care (01) ==
LOC: RAD 09:00
PROVIDERS: PCP Nurse Practitioner Family; Visit Provider Nurse Practitioner Family
DX: M51.369 Other intervertebral disc degeneration, lumbar region without mention of lumbar back pain or lower extremity pain (principal)
CPT/HCPCS: 72114

== ENCOUNTER 2025-03-23 06:30 | Outpatient (RCR) | payer MEDICARE, OTHER, SELFPAY | END 2025-04-22 23:59 | disposition home or self-care (01) | LOC: WPT 06:30 | PROVIDERS: Visit Provider Nurse Practitioner Family | DX: M54.50 Low back pain, unspecified (principal); G89.29 Other chronic pain | CPT/HCPCS: 97110; 97530 ==

== ENCOUNTER 2025-04-13 08:54 | Outpatient (CLI) | payer MEDICARE, OTHER, SELFPAY ==
--- NOTE | 2025-04-13 09:02 | XRR_ITS ---
PROCEDURE INFORMATION: Exam: XR Bilateral Hips Exam date and time: 04/13/2025 9:07 AM Age: 80 years old Clinical indication: Hip pain; Bilateral; Additional info: M25.551 - pain in right hip TECHNIQUE: Imaging protocol: Radiologic exam of the bilateral hips. Views: 2 views of hips with pelvis when performed. COMPARISON: CR XR lumbar spine 6V w f/e [id number] 03/02/2025 9:08 AM FINDINGS: Bones/joints: Up to mild bilateral hip DJD. Evidence likely old right hamstring avulsion injury at the right ischial tuberosity. No acute fracture, dislocation or other osseous abnormality Soft tissues: Unremarkable. XR/XR hip BI m 5V wo/w pel* [id number] IMPRESSION: No acute findings. See above
== END 2025-04-13 08:55 | disposition home or self-care (01) ==
LOC: RAD 08:57
PROVIDERS: PCP Nurse Practitioner Family; Visit Provider Nurse Practitioner Family
DX: M25.551 Pain in right hip (principal); M25.552 Pain in left hip; S79.912A Unspecified injury of left hip, initial encounter; X58.XXXA Exposure to other specified factors, initial encounter; M16.0 Bilateral primary osteoarthritis of hip
CPT/HCPCS: 73523

== ENCOUNTER → 2025-05-26 10:11 | Outpatient (BNVA) | payer MEDICARE, OTHER, SELFPAY | PROVIDERS: PCP Nurse Practitioner Family; Visit Provider Nurse Practitioner Family | DX: Z79.01 Long term (current) use of anticoagulants (principal) | CPT/HCPCS: 85610 ==

== ENCOUNTER → 2025-07-15 11:16 | Outpatient (BNVA) | payer MEDICARE, OTHER, SELFPAY | PROVIDERS: PCP Nurse Practitioner Family; Visit Provider Nurse Practitioner Family | DX: L57.8 Other skin changes due to chronic exposure to nonionizing radiation (principal); X32.XXXA Exposure to sunlight, initial encounter; L81.4 Other melanin hyperpigmentation; L91.8 Other hypertrophic disorders of the skin; L73.8 Other specified follicular disorders; L82.1 Other seborrheic keratosis; D22.39 Melanocytic nevi of other parts of face; L82.0 Inflamed seborrheic keratosis; L53.8 Other specified erythematous conditions; L29.89 Other pruritus; R20.8 Other disturbances of skin sensation; D48.5 Neoplasm of uncertain behavior of skin; L57.0 Actinic keratosis | CPT/HCPCS: 11102; 17000; 17110; 99213 ==

== ENCOUNTER → 2025-08-11 11:02 | Outpatient (BNVA) | payer MEDICARE, OTHER, SELFPAY | PROVIDERS: PCP Nurse Practitioner Family; Visit Provider Nurse Practitioner Family | DX: E55.9 Vitamin D deficiency, unspecified (principal); E11.9 Type 2 diabetes mellitus without complications; I10 Essential (primary) hypertension; E78.2 Mixed hyperlipidemia; R97.20 Elevated prostate specific antigen [PSA]; R53.83 Other fatigue; D64.9 Anemia, unspecified | CPT/HCPCS: 80053; 80061; 81003; 82306; 83036; 83735; 84100; 85025 ==

== ENCOUNTER → 2025-08-17 07:59 | Outpatient (BNVA) | payer MEDICARE, OTHER, SELFPAY | PROVIDERS: PCP Nurse Practitioner Family; Visit Provider Dermatology | DX: C44.42 Squamous cell carcinoma of skin of scalp and neck (principal) | CPT/HCPCS: 11623; 13132 ==

== ENCOUNTER → 2025-08-18 09:52 | Outpatient (BNVA) | payer MEDICARE, OTHER, SELFPAY | PROVIDERS: PCP Nurse Practitioner Family; Visit Provider Internal Medicine | DX: Z45.018 Encounter for adjustment and management of other part of cardiac pacemaker (principal) | CPT/HCPCS: 93296 ==

== ENCOUNTER → 2025-08-27 09:06 | Outpatient (BNVA) | payer MEDICARE, OTHER, SELFPAY | PROVIDERS: PCP Nurse Practitioner Family; Visit Provider Nurse Practitioner Family | DX: I13.0 Hypertensive heart and chronic kidney disease with heart failure and stage 1 through stage 4 chronic kidney disease, or unspecified chronic kidney disease (principal); E11.22 Type 2 diabetes mellitus with diabetic chronic kidney disease; N18.9 Chronic kidney disease, unspecified; I50.20 Unspecified systolic (congestive) heart failure; Z79.84 Long term (current) use of oral hypoglycemic drugs; E78.2 Mixed hyperlipidemia; I48.21 Permanent atrial fibrillation; Z79.01 Long term (current) use of anticoagulants; I25.10 Atherosclerotic heart disease of native coronary artery without angina pectoris; Z95.0 Presence of cardiac pacemaker; Z87.891 Personal history of nicotine dependence | CPT/HCPCS: 99214 ==